=== PATIENT | female | born 1935 | race Caucasian/White ===

== ENCOUNTER → 2019-02-06 | Outpatient (CLI) | payer OTHER ==
[2019-02-06 15:33] LABS: Basophils # (auto) 0 uL; Basophils % (auto) 0.6 % (0.0-2.0); Eosinophils # (auto) 0.2 uL; Eosinophils % (auto) 2.2 % (0.0-7.0); Hematocrit 44.7 % (36.0-46.0); Hemoglobin 15.3 g/dL (12.2-16.2); Lymphocytes # (auto) 1.4 uL; Lymphocytes % (auto) 19.3 % (10.0-50.0); Mean Corpuscular Hemoglobin 31.5 pg (28.0-32.0); Mean Corpuscular Hgb Conc. 34.2 g/dL (32.0-36.0); Mean Corpuscular Volume 92.1 fL (80.0-100.0); Monocytes # (auto) 0.5 uL; Monocytes % (auto) 6.9 % (0.0-12.0); Neutrophils # (auto) 5.1 uL; Platelet Count (auto) 150 10^3/uL (140-450); Red Blood Cells 4.86 10^6/uL (4.0-5.20); Red Cell Distribution Width 13.6 % (11.8-14.3); White Blood Cell 7.2 10^3/uL (4.4-10.8)
[2019-02-06 16:21] LABS: Albumin 3.5 g/dL (3.4-5.0); BUN/Creatinine Ratio 15.6; Calcium 8.9 mg/dL (8.5-10.1)
[2019-02-06 16:26] LABS: Bilirubin, Total 0.3 mg/dL (0.2-1.0); Total Protein 7.3 g/dL (6.4-8.2)
== END | disposition home or self-care (01) ==
LOC: LAB 15:18
PROVIDERS: ATTEND Internal Medicine
DX: E78.5 Hyperlipidemia, unspecified (principal); I10 Essential (primary) hypertension
CPT/HCPCS: 36415; 80053; 80061; 82306; 82607; 84443; 85025; 85652

== ENCOUNTER 2019-05-16 16:54 | Inpatient (IN) | payer OTHER ==
[~2019-05-16] VITALS: Ht 157.5 cm; Wt 79.5 kg
--- NOTE | 2019-05-16 16:55 | NUR ---
Direct Admit Note ANNY JACOBSON admitted to Telemetry unit as a direct admit per MD order. Patient oriented to Princess Camarillo, primary RN, unit, room, bed, and unit policies regarding patient care and visiting hours. Patient awaiting tele monitor for continuous telemetry monitoring. Patient placed on bedside oxygen at 2l n/c. Patient weighed by bedscale and encouraged to call if they need something. All questions and concerns addressed, patient verbalized understanding. RENNY Shelton paged to notify, awaiting admit orders. This rn called admitting to register patient and be able to access on [employer]. No distress or sob noted.
[2019-05-16 17:00] VITALS: BP 112/92
[2019-05-16] MEDS ORDERED: MORPHINE SULF INJ 2 MG/ML SYRINGE 1ML IV PRN ×3 (17:30→22:00)
[2019-05-16] MEDS ORDERED: NITROGLYCERIN 0.4 MG SL TAB SL PRN ×2 (17:30→22:00)
[2019-05-16] MEDS ORDERED: ONDANSETRON HCL 4 MG/2 ML VIAL IV PRN (17:45)
[2019-05-16] MEDS ORDERED: ACETAMINOPHEN 500 MG TAB PO PRN (17:45)
[2019-05-16] MEDS ORDERED: hydrALAZINE HCL 20 MG/ML VL IV PRN (17:45)
[2019-05-16 18:48] LABS: Basophils # (auto) 0 uL; Basophils % (auto) 0.6 % (0.0-2.0); Eosinophils # (auto) 0.3 uL; Eosinophils % (auto) 4.1 % (0.0-7.0); Hematocrit 40.8 % (36.0-46.0); Hemoglobin 13.6 g/dL (12.2-16.2); Lymphocytes # (auto) 1.3 uL; Lymphocytes % (auto) 17.4 % (10.0-50.0); Mean Corpuscular Hemoglobin 31.3 pg (28.0-32.0); Mean Corpuscular Hgb Conc. 33.4 g/dL (32.0-36.0); Mean Corpuscular Volume 93.9 fL (80.0-100.0); Monocytes # (auto) 0.7 uL; Monocytes % (auto) 9.7 % (0.0-12.0); Neutrophils # (auto) 5.2 uL; Neutrophils % (auto) 68.2 % (37.0-80.0); Platelet Count (auto) 219 10^3/uL (140-450); Red Blood Cells 4.35 10^6/uL (4.0-5.20); Red Cell Distribution Width 14.3 % (11.8-14.3); White Blood Cell 7.7 10^3/uL (4.4-10.8)
--- NOTE | 2019-05-16 19:15 | NUR ---
Patient care endorsed endorsed care to Jena hernandez. EKG done as ordered per RENNY Shelton and placed in chart. Tele monitor received from [employer] and placed on patient. Tele number [id number] shows afiv hr 80. Patient on2l n/c and call light within reach. Fall precs in place per protocol.
--- NOTE | 2019-05-16 19:20 | NUR ---
assumed care, pt. awake, no c/o pain, no sob.
--- NOTE | 2019-05-16 19:20 | NUR ---
assumed care, pt. awake,no iv at this time, no c/o pain, no sob. Addendum: 05/16/19 at 2025 by Jena Vann RN note above not on this patient.
[2019-05-16 19:26] LABS: BUN/Creatinine Ratio 18.8; Calcium 8.2 mg/dL (8.5-10.1); Potassium 4.5 mmol/L (3.5-5.1)
[2019-05-16 19:29] LABS: INR 1.08 (0.9-1.15)
[2019-05-16] MEDS: METOPROLOL TARTRATE 25 MG TAB PO SCH (21:25)
[2019-05-16] MEDS: APIXABAN 5 MG TAB PO SCH (21:25)
--- NOTE | 2019-05-16 21:45 | NUR ---
PT. C/O CHEST PAIN, EKG DONE, V/S FOLLOWS- BP-144/60, P-70, O2 SAT- 95%.
--- NOTE | 2019-05-16 22:03 | NUR ---
PT. STILL C/O CP, NITRO. 0.4MG GIVEN SL ORDERED, BP- 151/82, P-70, R-18, TO KEEP MONITOR.
--- NOTE | 2019-05-16 22:08 | NUR ---
PT. VERBALIZES CHEST PAIN RELIEVED.
[2019-05-16] MEDS: SODIUM CHLOR 0.9% PF (SALINE LOCK) 10ML VIAL/SYR IV SCH (22:10)
[2019-05-16] MEDS: HYDROcodone-ACET 5/325MG TAB PO PRN (22:10)
[2019-05-16 22:18] VITALS: BP 149/55
[2019-05-16] MEDS ORDERED: LISI-275 PO (22:53)
[2019-05-16] MEDS ORDERED: TRAM50TA2 PO (22:53)
[2019-05-16] MEDS ORDERED: DICY10CA12 PO (22:53)
[2019-05-16] MEDS ORDERED: LEVO50TA7 PO (22:53)
[2019-05-16] MEDS ORDERED: ISOS30TA4 PO (22:53)
[2019-05-16] MEDS ORDERED: SERT-274 PO (22:53)
[2019-05-16] MEDS ORDERED: ATEN50TA PO (22:53)
[2019-05-16] MEDS ORDERED: APIX5TAB PO (22:53)
--- NOTE | 2019-05-17 | NUR ---
pt. resting with eyes closed, no c/o chest pain, no sob.
[2019-05-17 05:06] VITALS: BP 155/91
[2019-05-17] MEDS: SODIUM CHLOR 0.9% PF (SALINE LOCK) 10ML VIAL/SYR IV SCH ×3 (05:37→21:18)
[2019-05-17 09:00] VITALS: BP 179/115
[2019-05-17 10:00] LABS: Basophils # (auto) 0.1 uL; Basophils % (auto) 0.8 % (0.0-2.0); Eosinophils # (auto) 0.3 uL; Eosinophils % (auto) 3.3 % (0.0-7.0); Hematocrit 44.6 % (36.0-46.0); Hemoglobin 15.1 g/dL (12.2-16.2); Lymphocytes # (auto) 1.1 uL; Lymphocytes % (auto) 14.1 % (10.0-50.0); Mean Corpuscular Hemoglobin 31.5 pg (28.0-32.0); Mean Corpuscular Hgb Conc. 33.8 g/dL (32.0-36.0); Mean Corpuscular Volume 93.3 fL (80.0-100.0); Monocytes # (auto) 0.6 uL; Neutrophils # (auto) 5.9 uL; Neutrophils % (auto) 73.8 % (37.0-80.0); Platelet Count (auto) 205 10^3/uL (140-450); Red Blood Cells 4.78 10^6/uL (4.0-5.20); Red Cell Distribution Width 14.4 % (11.8-14.3)
[2019-05-17] MEDS: ASPirin-EC 81 mg tab PO SCH (10:00)
[2019-05-17] MEDS ORDERED: LEVOTHYROXINE SODIUM 50 MCG TAB PO ONE (10:15)
[2019-05-17 10:25] LABS: Albumin 3.6 g/dL (3.4-5.0); Anion Gap 3 (5-15); Blood Urea Nitrogen 15 mg/dL (7-18); Calcium 8.5 mg/dL (8.5-10.1); Carbon Dioxide 29 mmol/L (21-32); Chloride 107 mmol/L (98-107); Glucose 123 mg/dL (74-106); Potassium 4.6 mmol/L (3.5-5.1); Sodium 139 mmol/L (136-145)
[2019-05-17 10:32] LABS: Alanine Aminotransferase 29 U/L (13-56); Alkaline Phosphatase 87 U/L (45-117); Aspartate Aminotransferase 20 U/L (15-37); BUN/Creatinine Ratio 17.9; Bilirubin, Total 0.6 mg/dL (0.2-1.0); GFR African American 83 mL/min; GFR Non-African American 69 mL/min; Total Protein 7.2 g/dL (6.4-8.2)
[2019-05-17 10:35] LABS: INR 1.09 (0.9-1.15); Partial Thromboplastin Time 32.8 sec (23.64-32.05)
[2019-05-17] MEDS: APIXABAN 5 MG TAB PO SCH (10:45)
[2019-05-17] MEDS: METOPROLOL TARTRATE 25 MG TAB PO SCH ×2 (10:50→21:18)
[2019-05-17] MEDS: LISINOPRIL 10 MG TAB PO SCH (10:50)
--- NOTE | 2019-05-17 11:24 | NUR ---
Spoke to Hospitalist MD Garcia aware of patient's status. Patient requesting to have Zoloft resumed per home meds. New orders received to resume zoloft. Will cont care
--- NOTE | 2019-05-17 12:20 | NUR ---
Cardio at bedside Holland at bedside aware of patient's status including c/o CP. New orders received for Adenosine stress test, spoke to Zane in nuc med and notified. New orders received to stop Eliquis now and Lovenox BID ordered. Will cont care
[2019-05-17] MEDS ORDERED: ADENOSINE 67 MG in GIVE UN-DILUTED 0 ML IV STA (12:26)
[2019-05-17 13:00] VITALS: BP 147/78
[2019-05-17 17:00] VITALS: BP 150/74
--- NOTE | 2019-05-17 19:10 | NUR ---
ASSUMED CARE, PT. AWAKE, NO C/O PAIN, NOT IN DISTRESS.
--- NOTE | 2019-05-17 19:10 | NUR ---
Patient care endorsed endorsed care to Jena hernandez. Patient sitting up in bed in no acute distress or sob. Call light within reach.
[2019-05-17 21:16] VITALS: BP 146/51
[2019-05-17] MEDS: SERTRALINE HCL 50 MG TAB PO SCH (21:18)
[2019-05-17] MEDS: ENOXAPARIN SOD 80 MG/0.8ML SYRINGE SC SCH (21:19)
[2019-05-18 05:35] VITALS: BP 135/71
[2019-05-18] MEDS: SODIUM CHLOR 0.9% PF (SALINE LOCK) 10ML VIAL/SYR IV SCH ×3 (05:39→21:34)
[2019-05-18] MEDS: HYDROcodone-ACET 5/325MG TAB PO PRN ×2 (05:40→21:30)
[2019-05-18] MEDS: LEVOTHYROXINE SODIUM 50 MCG TAB PO SCH (06:02)
--- NOTE | 2019-05-18 07:25 | NUR ---
Opening Note Received report from shift mechanic RN. Patient is awake, alert and oriented x4. No signs or symptoms of distress noted at this time. Patient is on 4L NC, respirations even and unlabored. Patient denies pain at this time. Reviewed plan of care with patient, patient verbalized understanding. Bed in low and locked position, call light within reach. Will continue to monitor Q1 hour and PRN.
[2019-05-18 09:00] VITALS: BP 137/80
[2019-05-18] MEDS: LISINOPRIL 10 MG TAB PO SCH (09:34)
[2019-05-18] MEDS: SERTRALINE HCL 50 MG TAB PO SCH ×2 (09:34→21:30)
[2019-05-18] MEDS: METOPROLOL TARTRATE 25 MG TAB PO SCH ×2 (09:34→21:31)
[2019-05-18] MEDS: ASPirin-EC 81 mg tab PO SCH (09:35)
[2019-05-18] MEDS: ENOXAPARIN SOD 80 MG/0.8ML SYRINGE SC SCH ×2 (09:35→21:34)
--- NOTE | 2019-05-18 12:07 | NUR ---
at bedside Discussing plan of care with patient. No new orders received. Will continue to monitor Q1 hour and PRN.
[2019-05-18 13:00] VITALS: BP 129/66
--- NOTE | 2019-05-18 15:25 | NUR ---
Patient moved to room 274B, with all personal belongings.
--- NOTE | 2019-05-18 19:21 | NUR ---
Closing Note Report given to retail shift supervisor RN. No signs or symptoms of distress noted at this time.
--- NOTE | 2019-05-18 19:45 | NUR ---
Opening Shift Note Assumed care of patient, awake and alert oriented x4. No S/S of distress/SOB noted. Bed is in lowest locked position with bed rails up x2 and call light is within reach of the patient. Instructed on POC and to call for assist PRN.
[2019-05-18 22:00] VITALS: BP 119/88
[2019-05-19 05:00] VITALS: BP 135/75
[2019-05-19 05:12] LABS: Basophils # (auto) 0 uL; Basophils % (auto) 0.7 % (0.0-2.0); Eosinophils # (auto) 0.2 uL; Eosinophils % (auto) 2.7 % (0.0-7.0); Hematocrit 41.7 % (36.0-46.0); Hemoglobin 14.1 g/dL (12.2-16.2); Mean Corpuscular Hemoglobin 31.2 pg (28.0-32.0); Mean Corpuscular Hgb Conc. 33.8 g/dL (32.0-36.0); Mean Corpuscular Volume 92.2 fL (80.0-100.0); Monocytes # (auto) 0.8 uL; Monocytes % (auto) 12.3 % (0.0-12.0); Neutrophils # (auto) 4.2 uL; Neutrophils % (auto) 68.3 % (37.0-80.0); Nucleated Red Blood Cells % 0.2 %; Platelet Count (auto) 164 10^3/uL (140-450); Red Blood Cells 4.52 10^6/uL (4.0-5.20); Red Cell Distribution Width 14.1 % (11.8-14.3); White Blood Cell 6.1 10^3/uL (4.4-10.8)
[2019-05-19 05:26] LABS: INR 1.09 (0.9-1.15); Partial Thromboplastin Time 37.2 sec (23.64-32.05)
[2019-05-19 05:31] LABS: BUN/Creatinine Ratio 17.6; Calcium 8.8 mg/dL (8.5-10.1)
[2019-05-19] MEDS: LEVOTHYROXINE SODIUM 50 MCG TAB PO SCH (06:05)
[2019-05-19] MEDS: HYDROcodone-ACET 5/325MG TAB PO PRN ×2 (06:06→14:57)
[2019-05-19] MEDS: SODIUM CHLOR 0.9% PF (SALINE LOCK) 10ML VIAL/SYR IV SCH ×2 (06:06→14:21)
--- NOTE | 2019-05-19 07:45 | NUR ---
Opening Note Received report from associate professor of anthropology RN. Patient is awake, alert and oriented x4. No signs or symptoms of distress noted at this time. Patient is on 2L NC, respirations even and unlabored. Patient is NPO for scheduled heart cath today. Reviewed plan of care with patient, patient verbalized understanding. Bed in low and locked position, call light within reach. Will continue to monitor Q1 hour and PRN.
--- NOTE | 2019-05-19 08:26 | NUR ---
Patient taken down to laborer drying department
[2019-05-19] MEDS ORDERED: IOHEXOL 350 MG/ML 100ML IJ ONE ×3 (08:49→09:16)
[2019-05-19] MEDS ORDERED: ANGIOMAX 250 MG VIAL IV ONE (09:00)
[2019-05-19] MEDS ORDERED: SODIUM CHL 0.9% 0 ML ONE (09:01)
[2019-05-19] MEDS ORDERED: VERAPAMIL 2.5MG/ML INJ 2ML VIAL IV ONE (09:01)
[2019-05-19] MEDS ORDERED: HEPARIN SODIUM (PORCINE) 5000 UNITS/ML 1ML VIAL ONE (09:01)
[2019-05-19] MEDS ORDERED: fentaNYL CITRATE 100 MCG/2 ML VL ONE (09:01)
[2019-05-19] MEDS ORDERED: MIDAZOLAM HCL 1MG/1ML-2 ML VIAL ONE (09:01)
[2019-05-19] MEDS ORDERED: LIDOCAINE 2%HCL (LOCAL ANESTH.) INJ 20ML MDV ONE (09:03)
[2019-05-19 09:46] VITALS: BP 157/64
[2019-05-19] MEDS: ASPirin-EC 81 mg tab PO SCH (10:00)
[2019-05-19] MEDS: LISINOPRIL 10 MG TAB PO SCH (10:00)
[2019-05-19] MEDS: SERTRALINE HCL 50 MG TAB PO SCH (10:00)
[2019-05-19] MEDS: ENOXAPARIN SOD 80 MG/0.8ML SYRINGE SC SCH (10:00)
[2019-05-19] MEDS: METOPROLOL TARTRATE 25 MG TAB PO SCH (10:00)
--- NOTE | 2019-05-19 11:42 | NUR ---
Patient back from dental laboratory assistant Received report from Shannan HOGAN. Vitals signs assesses. Blood pressure 143/70, heart rate 75. Patient is on 2L NC, respirations even and unlabored. Patient has Vasc band to right wrist, no signs of bleeding at this time. Bed alarm of for safety. Bed in low and locked position, call light within reach. Will continue to monitor Q1 hour and PRN.
[2019-05-19 12:30] VITALS: BP 111/50
--- NOTE | 2019-05-19 13:45 | NUR ---
Vasc band removed No bleeding noted to right wrist. Patient tolerated well. Gauze and Tegaderm applied to site. Patient tolerated well. Will continue to monitor Q1 hour and PRN.
--- NOTE | 2019-05-19 13:50 | NUR ---
Patient provided lunch tray
[2019-05-19] MEDS ORDERED: CALC-30 OR (15:11)
[2019-05-19] MEDS ORDERED: OMEG1CAP59 PO (15:11)
[2019-05-19] MEDS ORDERED: CHOL20007 PO (15:11)
[2019-05-19] MEDS ORDERED: MULTCAP45 PO (15:11)
[2019-05-19] MEDS ORDERED: ASCO500T11 PO (15:11)
--- NOTE | 2019-05-19 15:15 | NUR ---
Dr. Garcia at bedside Discussing plan of care with patient. Patient to be discharged today. Will continue to monitor Q1 and PRN.
--- NOTE | 2019-05-19 16:41 | NUR ---
assessment Patient has no post discharge needs identified. Addendum: 05/19/19 at 1642 by Hattie CRAVEN Amended: Links added.
[2019-05-19 17:09] VITALS: BP 145/59
[2019-05-19 17:12] VITALS: BP 148/88
--- NOTE | 2019-05-19 18:40 | NUR ---
Discharge Discharge instructions given as ordered. Encourage to follow up with PMD as instructed. All questions and concerns addressed. Patient verbalized understanding. Medication reconciliation form completed and copy given to patient. IV catheter removed, catheter intact, pressure dressing applied. school bus monitor removed and sent back to ICU. Patient taken down to private vehicle via wheelchair, accompanied by family member, with all personal belongings. No signs or symptoms of distress noted at this time.
== END 2019-05-19 18:40 | disposition home or self-care (01) | DRG 287 ==
LOC: OBSVTOIN 16:54 → TELE-WESTW 16:54
PROVIDERS: ADMIT Nurse Practitioner Acute Care; ATTEND Internal Medicine Nephrology
PROC: 4A023N7 Measurement of Cardiac Sampling and Pressure, Left Heart, Percutaneous Approach (ICD-10-PCS; principal; 2019-05-19)
PROC: B2111ZZ Fluoroscopy of Multiple Coronary Arteries using Low Osmolar Contrast (ICD-10-PCS; 2019-05-19)
PROC: B2151ZZ Fluoroscopy of Left Heart using Low Osmolar Contrast (ICD-10-PCS; 2019-05-19)
DX: R07.89 Other chest pain (principal); D68.59 Other primary thrombophilia; I10 Essential (primary) hypertension; I25.10 Atherosclerotic heart disease of native coronary artery without angina pectoris; E03.9 Hypothyroidism, unspecified; F32.9 Major depressive disorder, single episode, unspecified; J44.9 Chronic obstructive pulmonary disease, unspecified; I48.91 Unspecified atrial fibrillation; E78.5 Hyperlipidemia, unspecified; I25.2 Old myocardial infarction; Z85.118 Personal history of other malignant neoplasm of bronchus and lung; Z95.1 Presence of aortocoronary bypass graft; Z79.01 Long term (current) use of anticoagulants
CPT/HCPCS: 36415; 36600; 71045; 78452; 80048; 80053; 82805; 84484; 85025; 85610; 85730; 86141; 86850; 86900; 86901; 93005; 93017; 93306; 96374; G0378; J0153; J2250

== ENCOUNTER → 2019-07-13 | Outpatient (CLI) | payer OTHER ==
[~2019-07-13] MED LIST: APIX5TAB PO; ATEN50TA PO; CALC-30 OR; ISOS30TA4 PO; LEVO50TA7 PO; LISI-275 PO; MULTCAP45 PO; OMEG1CAP59 PO; SERT-274 PO; TRAM50TA2 PO
[2019-07-13 10:34] LABS: Basophils # (auto) 0 uL; Basophils % (auto) 0.7 % (0.0-2.0); Eosinophils # (auto) 0.1 uL; Eosinophils % (auto) 1.6 % (0.0-7.0); Hematocrit 41.1 % (36.0-46.0); Hemoglobin 14.1 g/dL (12.2-16.2); Lymphocytes % (auto) 14.9 % (10.0-50.0); Mean Corpuscular Hemoglobin 30.7 pg (28.0-32.0); Mean Corpuscular Hgb Conc. 34.3 g/dL (32.0-36.0); Mean Corpuscular Volume 89.5 fL (80.0-100.0); Monocytes # (auto) 0.6 uL; Monocytes % (auto) 8.6 % (0.0-12.0); Neutrophils # (auto) 4.9 uL; Neutrophils % (auto) 74.2 % (37.0-80.0); Platelet Count (auto) 175 10^3/uL (140-450); Red Blood Cells 4.59 10^6/uL (4.0-5.20); Red Cell Distribution Width 13.9 % (11.8-14.3); White Blood Cell 6.6 10^3/uL (4.4-10.8)
[2019-07-13 10:56] LABS: Albumin 3.6 g/dL (3.4-5.0)
[2019-07-13 11:10] LABS: BUN/Creatinine Ratio 26.4; Bilirubin, Total 0.5 mg/dL (0.2-1.0)
[2019-07-13 12:14] LABS: Folate (Folic Acid) > 24.00 ng/mL (5.38-24)
== END | disposition home or self-care (01) ==
LOC: LAB 10:13
PROVIDERS: ATTEND Internal Medicine
DX: I10 Essential (primary) hypertension (principal)
CPT/HCPCS: 36415; 80053; 80061; 82306; 82607; 82746; 84443; 85025

== ENCOUNTER → 2019-09-08 | Outpatient (CLI) | payer OTHER ==
[2019-09-08 14:16] LABS: Basophils # (auto) 0.1 10 ^3/uL (0-0.2); Basophils % (auto) 0.8 % (0.0-2.0); Eosinophils # (auto) 0.2 10 ^3/uL (0-0.8); Eosinophils % (auto) 2.9 % (0.0-7.0); Hematocrit 39.7 % (36.0-46.0); Hemoglobin 13.2 g/dL (12.2-16.2); Lymphocytes # (auto) 1.1 10 ^3/uL (0.4-5.4); Mean Corpuscular Hemoglobin 30.1 pg (28.0-32.0); Mean Corpuscular Hgb Conc. 33.2 g/dL (32.0-36.0); Mean Corpuscular Volume 90.9 fL (80.0-100.0); Monocytes # (auto) 0.7 10 ^3/uL (0-1.3); Monocytes % (auto) 9.5 % (0.0-12.0); Neutrophils # (auto) 5.1 10 ^3/uL (1.6-8.6); Neutrophils % (auto) 71.8 % (37.0-80.0); Platelet Count (auto) 205 10^3/uL (140-450); Red Blood Cells 4.37 10^6/uL (4.0-5.20); Red Cell Distribution Width 14.7 % (11.8-14.3); White Blood Cell 7.1 10^3/uL (4.4-10.8)
[2019-09-08 14:35] LABS: Albumin 3.1 g/dL (3.4-5.0); Calcium 8.9 mg/dL (8.5-10.1); Potassium 4.4 mmol/L (3.5-5.1)
[2019-09-08 14:39] LABS: BUN/Creatinine Ratio 15.3; Bilirubin, Total 0.3 mg/dL (0.2-1.0); Total Protein 7.1 g/dL (6.4-8.2)
== END | disposition home or self-care (01) ==
LOC: LAB 13:57
PROVIDERS: ATTEND Internal Medicine
DX: C78.00 Secondary malignant neoplasm of unspecified lung (principal); E04.1 Nontoxic single thyroid nodule
CPT/HCPCS: 36415; 80053; 85025

== ENCOUNTER 2019-12-05 21:30 | Emergency (ER) | payer OTHER ==
[~2019-12-05] VITALS: Ht 167.6 cm; Wt 78.9 kg
[2019-12-05 23:05] LABS: Basophils # (auto) 0 10 ^3/uL (0-0.2); Basophils % (auto) 0.4 % (0.0-2.0); Eosinophils # (auto) 0 10 ^3/uL (0-0.8); Eosinophils % (auto) 0.1 % (0.0-7.0); Hematocrit 42.5 % (36.0-46.0); Hemoglobin 14.2 g/dL (12.2-16.2); Lymphocytes # (auto) 0.6 10 ^3/uL (0.4-5.4); Lymphocytes % (auto) 7.1 % (10.0-50.0); Mean Corpuscular Hemoglobin 30.7 pg (28.0-32.0); Mean Corpuscular Hgb Conc. 33.5 g/dL (32.0-36.0); Mean Corpuscular Volume 91.6 fL (80.0-100.0); Monocytes # (auto) 0.3 10 ^3/uL (0-1.3); Monocytes % (auto) 3.6 % (0.0-12.0); Neutrophils % (auto) 88.8 % (37.0-80.0); Platelet Count (auto) 220 10^3/uL (140-450); Red Blood Cells 4.64 10^6/uL (4.0-5.20); Red Cell Distribution Width 14.8 % (11.8-14.3)
[2019-12-05 23:19] LABS: INR 1.11 (0.9-1.15); Partial Thromboplastin Time 32.9 sec (23.64-32.05)
[2019-12-05 23:23] LABS: Albumin 3.9 g/dL (3.4-5.0); Potassium 4.1 mmol/L (3.5-5.1)
[2019-12-05 23:25] LABS: BUN/Creatinine Ratio 19.3; Magnesium 2.2 mg/dL (1.6-2.6)
[2019-12-05 23:36] LABS: Bilirubin, Total 0.6 mg/dL (0.2-1.0)
[2019-12-06] MEDS ORDERED: LIDOCAINE VISCOUS 2% 15ML UD PO ONE (01:30)
[2019-12-06] MEDS ORDERED: SODIUM CHLORIDE 0.9% 500 ML IV ONE (01:30)
[2019-12-06] MEDS ORDERED: PANTOPRAZOLE 40 MG/10 ML VIAL INJ IV ONE (01:30)
[2019-12-06] MEDS ORDERED: ALUM & MAG HYDROX-SIMETH LIQ(MAALOX) 30 ML PO ONE (01:30)
[2019-12-06 03:06] VITALS: BP 122/76
== END 2019-12-06 03:10 | disposition home or self-care (01) ==
LOC: EDBD 21:30 → ER 21:34
DX: K29.70 Gastritis, unspecified, without bleeding (principal); J44.9 Chronic obstructive pulmonary disease, unspecified; I10 Essential (primary) hypertension; Z88.8 Allergy status to other drugs, medicaments and biological substances; Z79.899 Other long term (current) drug therapy; Z98.61 Coronary angioplasty status
CPT/HCPCS: 36415; 71045; 74176; 80053; 82150; 83690; 83735; 85025; 85610; 85730; 93005; 96374; 99285; C9113; J7030; J7040

== ENCOUNTER → 2020-02-14 | Outpatient (CLI) | payer OTHER ==
[~2020-02-14] MED LIST changes: +ALBUTEROL SULF 2.5 MG/0.5ML(0.5%) NEB SOLN ONE
== END | disposition home or self-care (01) ==
LOC: RT 08:30
PROVIDERS: ATTEND Internal Medicine Pulmonary Disease
DX: J44.9 Chronic obstructive pulmonary disease, unspecified (principal)
CPT/HCPCS: 94060; 94727; 94729

== ENCOUNTER → 2020-08-06 | Outpatient (CLI) | payer OTHER ==
[~2020-08-06] VITALS: Ht 170.2 cm; Wt 79.4 kg
[~2020-08-06] MED LIST changes: +ADENOSINE 67 MG in GIVE UN-DILUTED 0 ML IV STA; -ALBUTEROL SULF 2.5 MG/0.5ML(0.5%) NEB SOLN ONE
[2020-08-06 09:40] VITALS: BP 172/88
== END | disposition home or self-care (01) ==
LOC: XY 08:07
PROVIDERS: ATTEND Internal Medicine
DX: R07.9 Chest pain, unspecified (principal)
CPT/HCPCS: 78452; 93017; A9500; J0153

== ENCOUNTER → 2020-08-08 | Outpatient (CLI) | payer OTHER ==
[~2020-08-08] MED LIST changes: -ADENOSINE 67 MG in GIVE UN-DILUTED 0 ML IV STA
[2020-08-08 16:38] LABS: Basophils # (auto) 0.1 10 ^3/uL (0-0.2); Basophils % (auto) 0.9 % (0.0-2.0); Eosinophils # (auto) 0.1 10 ^3/uL (0-0.8); Eosinophils % (auto) 2.2 % (0.0-7.0); Hematocrit 42.1 % (36.0-46.0); Hemoglobin 14.1 g/dL (12.2-16.2); Lymphocytes # (auto) 1.2 10 ^3/uL (0.4-5.4); Lymphocytes % (auto) 18.5 % (10.0-50.0); Mean Corpuscular Hgb Conc. 33.6 g/dL (32.0-36.0); Mean Corpuscular Volume 92.3 fL (80.0-100.0); Monocytes # (auto) 0.6 10 ^3/uL (0-1.3); Neutrophils # (auto) 4.6 10 ^3/uL (1.6-8.6); Neutrophils % (auto) 69.4 % (37.0-80.0); Platelet Count (auto) 191 10^3/uL (140-450); Red Blood Cells 4.57 10^6/uL (4.0-5.20); Red Cell Distribution Width 14.4 % (11.8-14.3); White Blood Cell 6.6 10^3/uL (4.4-10.8)
[2020-08-08 17:08] LABS: Albumin 3.4 g/dL (3.4-5.0); Calcium 8.9 mg/dL (8.5-10.1); Potassium 4.4 mmol/L (3.5-5.1)
[2020-08-08 17:12] LABS: BUN/Creatinine Ratio 25.6; Bilirubin, Total 0.4 mg/dL (0.2-1.0); Total Protein 7.6 g/dL (6.4-8.2)
== END | disposition home or self-care (01) ==
LOC: LAB 16:21
PROVIDERS: ATTEND Internal Medicine
DX: E55.9 Vitamin D deficiency, unspecified (principal); N39.0 Urinary tract infection, site not specified; E03.9 Hypothyroidism, unspecified
CPT/HCPCS: 36415; 80053; 80061; 84443; 85025; 87086

== ENCOUNTER → 2020-10-03 | Outpatient (CLI) | payer OTHER | END | disposition home or self-care (01) | LOC: XYW 10:41 | PROVIDERS: ATTEND Internal Medicine | DX: I07.1 Rheumatic tricuspid insufficiency (principal); I48.91 Unspecified atrial fibrillation; R07.9 Chest pain, unspecified | CPT/HCPCS: 93306 ==

== ENCOUNTER → 2020-11-05 | Outpatient (CLI) | payer OTHER ==
[~2020-11-05] MED LIST changes: +ISOS1TAB28 PO; -ISOS30TA4 PO; -SERT-274 PO; +SERT50TA19 PO
[2020-11-05 12:14] LABS: Basophils # (auto) 0 10 ^3/uL (0-0.2); Basophils % (auto) 0.8 % (0.0-2.0); Eosinophils # (auto) 0.1 10 ^3/uL (0-0.8); Eosinophils % (auto) 2.2 % (0.0-7.0); Hematocrit 40.2 % (36.0-46.0); Hemoglobin 14.1 g/dL (12.2-16.2); Lymphocytes % (auto) 16.6 % (10.0-50.0); Mean Corpuscular Hemoglobin 32.3 pg (28.0-32.0); Mean Corpuscular Volume 92.3 fL (80.0-100.0); Monocytes # (auto) 0.6 10 ^3/uL (0-1.3); Monocytes % (auto) 9.6 % (0.0-12.0); Neutrophils # (auto) 4.1 10 ^3/uL (1.6-8.6); Neutrophils % (auto) 70.8 % (37.0-80.0); Platelet Count (auto) 189 10^3/uL (140-450); Red Blood Cells 4.35 10^6/uL (4.0-5.20); Red Cell Distribution Width 14.8 % (11.8-14.3); White Blood Cell 5.8 10^3/uL (4.4-10.8)
[2020-11-05 12:40] LABS: Albumin 3.3 g/dL (3.4-5.0); Calcium 8.8 mg/dL (8.5-10.1); Potassium 4.5 mmol/L (3.5-5.1)
[2020-11-05 12:44] LABS: BUN/Creatinine Ratio 15.6; Bilirubin, Total 0.3 mg/dL (0.2-1.0); Total Protein 7.5 g/dL (6.4-8.2)
[2020-11-05 12:52] LABS: Thyroid Stimulating Hormone 1.94 uIU/mL (0.358-3.74)
== END | disposition home or self-care (01) ==
LOC: LAB 11:44
PROVIDERS: ATTEND Internal Medicine
DX: Z00.00 Encounter for general adult medical examination without abnormal findings (principal); C34.90 Malignant neoplasm of unspecified part of unspecified bronchus or lung
CPT/HCPCS: 36415; 80053; 83615; 84436; 84443; 85025

== ENCOUNTER → 2021-01-14 | Outpatient (CLI) | payer OTHER ==
[2021-01-14 17:06] LABS: Basophils # (auto) 0.1 10 ^3/uL (0-0.2); Eosinophils # (auto) 0.1 10 ^3/uL (0-0.8); Eosinophils % (auto) 2.3 % (0.0-7.0); Hematocrit 40.7 % (36.0-46.0); Hemoglobin 14.2 g/dL (12.2-16.2); Lymphocytes # (auto) 1.2 10 ^3/uL (0.4-5.4); Lymphocytes % (auto) 20.5 % (10.0-50.0); Mean Corpuscular Hemoglobin 32.6 pg (28.0-32.0); Mean Corpuscular Hgb Conc. 34.8 g/dL (32.0-36.0); Mean Corpuscular Volume 93.8 fL (80.0-100.0); Monocytes # (auto) 0.5 10 ^3/uL (0-1.3); Monocytes % (auto) 7.8 % (0.0-12.0); Neutrophils % (auto) 68.4 % (37.0-80.0); Nucleated Red Blood Cells % 0.1 %; Red Blood Cells 4.34 10^6/uL (4.0-5.20); White Blood Cell 5.9 10^3/uL (4.4-10.8)
[2021-01-14 17:36] LABS: INR 1.1 (0.9-1.15); Partial Thromboplastin Time 32.2 sec (23.0-31.2)
== END | disposition home or self-care (01) ==
LOC: LAB 16:44
PROVIDERS: ATTEND Internal Medicine
DX: Z00.00 Encounter for general adult medical examination without abnormal findings (principal); C34.90 Malignant neoplasm of unspecified part of unspecified bronchus or lung
CPT/HCPCS: 36415; 85025; 85610; 85730

== ENCOUNTER → 2021-01-17 | Outpatient (CLI) | payer OTHER ==
[~2021-01-17] MED LIST changes: +LIDOCAINE 2%HCL (LOCAL ANESTH.) INJ 20ML MDV ONE; +MIDAZOLAM HCL 2MG/2ML 2ml VIAL (1mg/ml) IV ONE; +MIDAZOLAM HCL 2MG/2ML 2ml VIAL (1mg/ml) ONE; +fentaNYL CITRATE 100 MCG/2 ML VL IV ONE; +fentaNYL CITRATE 100 MCG/2 ML VL ONE
== END | disposition home or self-care (01) ==
LOC: XYW 01-15 10:20
PROVIDERS: ATTEND Internal Medicine
DX: C34.90 Malignant neoplasm of unspecified part of unspecified bronchus or lung (principal); J43.2 Centrilobular emphysema; R91.8 Other nonspecific abnormal finding of lung field; I25.10 Atherosclerotic heart disease of native coronary artery without angina pectoris; I51.7 Cardiomegaly; I70.0 Atherosclerosis of aorta; R59.0 Localized enlarged lymph nodes
CPT/HCPCS: 71250; J2250

== ENCOUNTER → 2021-08-12 | Outpatient (CLI) | payer OTHER ==
[~2021-08-12] MED LIST changes: -LIDOCAINE 2%HCL (LOCAL ANESTH.) INJ 20ML MDV ONE; -MIDAZOLAM HCL 2MG/2ML 2ml VIAL (1mg/ml) IV ONE; -MIDAZOLAM HCL 2MG/2ML 2ml VIAL (1mg/ml) ONE; -fentaNYL CITRATE 100 MCG/2 ML VL IV ONE; -fentaNYL CITRATE 100 MCG/2 ML VL ONE
[2021-08-12 11:31] LABS: INR 1.06 (0.9-1.15); Partial Thromboplastin Time 30.9 sec (23.6-33.0)
[2021-08-12 14:11] LABS: Basophils # (auto) 0.1 10 ^3/uL (0-0.2); Basophils % (auto) 1.2 % (0.0-2.0); Eosinophils # (auto) 0.2 10 ^3/uL (0-0.8); Eosinophils % (auto) 2.2 % (0.0-7.0); Hematocrit 40.8 % (36.0-46.0); Hemoglobin 13.8 g/dL (12.2-16.2); Lymphocytes % (auto) 13.9 % (10.0-50.0); Mean Corpuscular Hemoglobin 32.2 pg (28.0-32.0); Mean Corpuscular Hgb Conc. 33.9 g/dL (32.0-36.0); Mean Corpuscular Volume 95.1 fL (80.0-100.0); Monocytes # (auto) 0.6 10 ^3/uL (0-1.3); Monocytes % (auto) 8.9 % (0.0-12.0); Neutrophils # (auto) 5.4 10 ^3/uL (1.6-8.6); Neutrophils % (auto) 73.8 % (37.0-80.0); Nucleated Red Blood Cells % 0.1 %; Red Blood Cells 4.29 10^6/uL (4.0-5.20); White Blood Cell 7.3 10^3/uL (4.4-10.8)
== END | disposition home or self-care (01) ==
LOC: LAB 09:52
PROVIDERS: ATTEND Internal Medicine Pulmonary Disease
DX: C34.90 Malignant neoplasm of unspecified part of unspecified bronchus or lung (principal); J44.9 Chronic obstructive pulmonary disease, unspecified
CPT/HCPCS: 36415; 85025; 85610; 85730

== ENCOUNTER → 2021-08-21 | Outpatient (CLI) | payer OTHER | END | disposition home or self-care (01) | LOC: XY 09:09 | PROVIDERS: ATTEND Internal Medicine | DX: I65.29 Occlusion and stenosis of unspecified carotid artery (principal); I10 Essential (primary) hypertension; R42 Dizziness and giddiness | CPT/HCPCS: 93886 ==

== ENCOUNTER → 2021-09-10 | Outpatient (CLI) | payer OTHER ==
[2021-09-10 09:16] LABS: Basophils # (auto) 0.1 10 ^3/uL (0-0.2); Basophils % (auto) 1.1 % (0.0-2.0); Eosinophils # (auto) 0.2 10 ^3/uL (0-0.8); Eosinophils % (auto) 2.6 % (0.0-7.0); Hematocrit 40.6 % (36.0-46.0); Hemoglobin 14.4 g/dL (12.2-16.2); Lymphocytes # (auto) 1.1 10 ^3/uL (0.4-5.4); Lymphocytes % (auto) 18.5 % (10.0-50.0); Mean Corpuscular Hemoglobin 32.8 pg (28.0-32.0); Mean Corpuscular Hgb Conc. 35.3 g/dL (32.0-36.0); Monocytes # (auto) 0.4 10 ^3/uL (0-1.3); Monocytes % (auto) 7.3 % (0.0-12.0); Neutrophils # (auto) 4.3 10 ^3/uL (1.6-8.6); Neutrophils % (auto) 70.5 % (37.0-80.0); Nucleated Red Blood Cells % 0.1 %; Red Blood Cells 4.37 10^6/uL (4.0-5.20); Red Cell Distribution Width 13.9 % (11.8-14.3); White Blood Cell 6.1 10^3/uL (4.4-10.8)
[2021-09-10 09:54] LABS: Albumin 3.4 g/dL (3.4-5.0); Calcium 9.3 mg/dL (8.5-10.1)
[2021-09-10 10:01] LABS: BUN/Creatinine Ratio 19.6; Bilirubin, Total 0.3 mg/dL (0.2-1.0); Total Protein 7.2 g/dL (6.4-8.2)
== END | disposition home or self-care (01) ==
LOC: LAB 08:53
PROVIDERS: ATTEND Internal Medicine
DX: E78.5 Hyperlipidemia, unspecified (principal); I10 Essential (primary) hypertension
CPT/HCPCS: 36415; 80053; 80061; 83036; 84443; 85025

== ENCOUNTER 2021-11-24 13:02 | Emergency (ER) | payer OTHER ==
[~2021-11-24] VITALS: Ht 157.5 cm; Wt 77.1 kg
[2021-11-24 13:16] VITALS: BP 140/75
[2021-11-24] MEDS ORDERED: ONDANSETRON HCL 4 MG/2 ML VIAL IV ONE (14:00)
[2021-11-24] MEDS ORDERED: MORPHINE SULFATE 4 MG/ML SYR/VIAL IV ONE (14:00)
[2021-11-24 15:19] LABS: Basophils # (auto) 0.1 10 ^3/uL (0-0.2); Basophils % (auto) 1.2 % (0.0-2.0); Eosinophils # (auto) 0.1 10 ^3/uL (0-0.8); Eosinophils % (auto) 0.9 % (0.0-7.0); Hematocrit 39.1 % (36.0-46.0); Hemoglobin 13.4 g/dL (12.2-16.2); Lymphocytes # (auto) 0.8 10 ^3/uL (0.4-5.4); Lymphocytes % (auto) 11.1 % (10.0-50.0); Mean Corpuscular Hemoglobin 32.3 pg (28.0-32.0); Mean Corpuscular Hgb Conc. 34.4 g/dL (32.0-36.0); Monocytes # (auto) 0.5 10 ^3/uL (0-1.3); Monocytes % (auto) 6.6 % (0.0-12.0); Neutrophils # (auto) 6.1 10 ^3/uL (1.6-8.6); Neutrophils % (auto) 80.2 % (37.0-80.0); Nucleated Red Blood Cells % 0.1 %; Red Blood Cells 4.15 10^6/uL (4.0-5.20); Red Cell Distribution Width 13.8 % (11.8-14.3); White Blood Cell 7.6 10^3/uL (4.4-10.8)
[2021-11-24 15:23] LABS: Albumin 3.5 g/dL (3.4-5.0); Potassium 4.3 mmol/L (3.5-5.1)
[2021-11-24 15:27] LABS: Bilirubin, Total 0.3 mg/dL (0.2-1.0); Total Protein 7.5 g/dL (6.4-8.2)
[2021-11-24] MEDS ORDERED: ASPirin 81 mg TAB PO ONE (16:15)
== END 2021-11-24 19:03 | disposition left against medical advice (07) ==
LOC: ER 13:02
DX: R07.89 Other chest pain (principal); I24.9 Acute ischemic heart disease, unspecified; J44.9 Chronic obstructive pulmonary disease, unspecified; I10 Essential (primary) hypertension; I25.2 Old myocardial infarction; I48.91 Unspecified atrial fibrillation; Z90.49 Acquired absence of other specified parts of digestive tract; Z90.89 Acquired absence of other organs; Z90.710 Acquired absence of both cervix and uterus; Z98.61 Coronary angioplasty status; Z53.29 Procedure and treatment not carried out because of patient's decision for other reasons; Z91.041 Radiographic dye allergy status
CPT/HCPCS: 36415; 71046; 80053; 83735; 83880; 84484; 85025; 93005

== ENCOUNTER 2022-01-08 12:55 | Inpatient (IN) | payer OTHER ==
[~2022-01-08] VITALS: Ht 157.5 cm; Wt 80.1 kg
[2022-01-08] MEDS ORDERED: IPRATROPIUM BROM 0.5 MG/2.5ML INH SOL NEB ONE (13:30)
[2022-01-08] MEDS ORDERED: DexAMETHasone SOD PHOS 10MG/1ML VIAL INJ IV ONE (13:30)
[2022-01-08] MEDS ORDERED: ALBUTEROL SULF 2.5 MG/0.5ML(0.5%) NEB SOLN NEB ONE (13:30)
[2022-01-08 13:46] LABS: Basophils # (auto) 0 10 ^3/uL (0-0.2); Basophils % (auto) 0.5 % (0.0-2.0); Eosinophils # (auto) 0 10 ^3/uL (0-0.8); Eosinophils % (auto) 0.2 % (0.0-7.0); Hematocrit 37.8 % (36.0-46.0); Hemoglobin 12.4 g/dL (12.2-16.2); Lymphocytes # (auto) 0.4 10 ^3/uL (0.4-5.4); Lymphocytes % (auto) 6.7 % (10.0-50.0); Mean Corpuscular Hemoglobin 30.4 pg (28.0-32.0); Mean Corpuscular Hgb Conc. 32.9 g/dL (32.0-36.0); Mean Corpuscular Volume 92.5 fL (80.0-100.0); Monocytes # (auto) 0.2 10 ^3/uL (0-1.3); Monocytes % (auto) 3.9 % (0.0-12.0); Neutrophils # (auto) 5.2 10 ^3/uL (1.6-8.6); Neutrophils % (auto) 88.7 % (37.0-80.0); Red Blood Cells 4.09 10^6/uL (4.0-5.20); Red Cell Distribution Width 13.5 % (11.8-14.3); White Blood Cell 5.9 10^3/uL (4.4-10.8)
[2022-01-08 14:05] LABS: Albumin 3.3 g/dL (3.4-5.0); Calcium 9.5 mg/dL (8.5-10.1); Magnesium 2.1 mg/dL (1.6-2.6); Potassium 5.3 mmol/L (3.5-5.1)
[2022-01-08] MEDS: MAGNESIUM SULFATE 1GM/100ML 100 ML IV SCH ×2 (14:07→14:58)
[2022-01-08 14:10] LABS: BUN/Creatinine Ratio 24.3; Bilirubin, Total 0.4 mg/dL (0.2-1.0); Total Protein 7.8 g/dL (6.4-8.2)
[2022-01-08] MEDS ORDERED: NITROGLYCERIN 0.4 MG SL TAB SL PRN (18:15)
[2022-01-08] MEDS ORDERED: IPRATROPIUM BROM 0.5 MG/2.5ML INH SOL NEB PRN (18:15)
[2022-01-08] MEDS ORDERED: MORPHINE SULFATE INJ 2 MG/ml SYRG IV PRN (18:15)
[2022-01-08] MEDS ORDERED: ALBUTEROL SULF 2.5 MG/0.5ML(0.5%) NEB SOLN NEB PRN (18:15)
[2022-01-08 19:05] VITALS: BP 122/60
[2022-01-08 19:15] LABS: Cholesterol 137 mg/dL (< 200); Triglycerides 68 mg/dL (< 150)
[2022-01-08 19:18] LABS: HDL Cholesterol 41 mg/dL (40-59); LDL Cholesterol 96 mg/dL (< 100)
[2022-01-08] MEDS: methylPREDNISolone SOD SUCC 125 MG/2 ML VL IV SCH (21:30)
[2022-01-08] MEDS: APIXABAN 5 MG TAB PO SCH (21:30)
[2022-01-08] MEDS: ATENOLOL 50 MG TAB PO SCH (21:30)
[2022-01-08 22:00] VITALS: BP 136/66
[2022-01-08 22:35] LABS: Urine Bacteria FEW /hpf (None Seen); Urine Blood Negative /uL (Negative); Urine Hyaline Cast FEW /lpf (0 - 2); Urine Specific Gravity 1.017 (1.001-1.035); Urine WBC 14 /hpf (0 - 5)
[2022-01-09 05:00] VITALS: BP 114/60
[2022-01-09] MEDS: ALBUTEROL SULF 2.5 MG/0.5ML(0.5%) NEB SOLN NEB SCH ×3 (05:55→18:46)
[2022-01-09] MEDS: IPRATROPIUM BROM 0.5 MG/2.5ML INH SOL NEB SCH ×3 (05:55→18:46)
[2022-01-09 07:51] LABS: Basophils # (auto) 0.1 10 ^3/uL (0-0.2); Basophils % (auto) 0.6 % (0.0-2.0); Eosinophils # (auto) 0 10 ^3/uL (0-0.8); Eosinophils % (auto) 0.1 % (0.0-7.0); Hematocrit 38.2 % (36.0-46.0); Hemoglobin 12.7 g/dL (12.2-16.2); Lymphocytes # (auto) 0.5 10 ^3/uL (0.4-5.4); Lymphocytes % (auto) 4.7 % (10.0-50.0); Mean Corpuscular Hemoglobin 30.7 pg (28.0-32.0); Mean Corpuscular Hgb Conc. 33.2 g/dL (32.0-36.0); Mean Corpuscular Volume 92.6 fL (80.0-100.0); Monocytes # (auto) 0.3 10 ^3/uL (0-1.3); Monocytes % (auto) 2.5 % (0.0-12.0); Neutrophils # (auto) 9.5 10 ^3/uL (1.6-8.6); Neutrophils % (auto) 92.1 % (37.0-80.0); Red Blood Cells 4.12 10^6/uL (4.0-5.20); Red Cell Distribution Width 13.9 % (11.8-14.3); White Blood Cell 10.3 10^3/uL (4.4-10.8)
[2022-01-09 08:04] LABS: Albumin 3.2 g/dL (3.4-5.0); Calcium 9.1 mg/dL (8.5-10.1); Potassium 5.3 mmol/L (3.5-5.1)
[2022-01-09 08:07] LABS: BUN/Creatinine Ratio 27.4; Bilirubin, Total 0.3 mg/dL (0.2-1.0); Total Protein 7.6 g/dL (6.4-8.2)
[2022-01-09 09:24] VITALS: BP 107/50
[2022-01-09] MEDS: ATENOLOL 50 MG TAB PO SCH ×2 (09:27→21:44)
[2022-01-09] MEDS: APIXABAN 5 MG TAB PO SCH ×2 (09:49→21:43)
[2022-01-09] MEDS: AZITHROMYCIN 500MG/ 250ML 250 ML IV SCH (09:49)
[2022-01-09] MEDS: methylPREDNISolone SOD SUCC 125 MG/2 ML VL IV SCH ×2 (09:49→21:43)
[2022-01-09] MEDS ORDERED: OSELTAMIVIR 75 MG CAP PO ONE (10:00)
[2022-01-09] MEDS ORDERED: cefTRIAXone 1GM/50ML D5W 50 ML IV ONE (11:30)
[2022-01-09 13:04] VITALS: BP 131/62
[2022-01-09] MEDS ORDERED: ACETAMINOPHEN 500 MG TAB PO PRN (15:45)
[2022-01-09] MEDS ORDERED: THROAT LOZENGES(CEPASTAT) MT PRN (15:45)
[2022-01-09 16:39] VITALS: BP 129/71
[2022-01-09] MEDS: OSELTAMIVIR 30 MG CAP PO SCH (21:48)
[2022-01-09 22:00] VITALS: BP 147/78
[2022-01-10 05:00] VITALS: BP 115/69
[2022-01-10] MEDS: ALBUTEROL SULF 2.5 MG/0.5ML(0.5%) NEB SOLN NEB SCH ×3 (06:14→18:52)
[2022-01-10] MEDS: IPRATROPIUM BROM 0.5 MG/2.5ML INH SOL NEB SCH ×3 (06:15→18:52)
[2022-01-10 07:59] LABS: Basophils # (auto) 0 10 ^3/uL (0-0.2); Basophils % (auto) 0.1 % (0.0-2.0); Eosinophils # (auto) 0 10 ^3/uL (0-0.8); Hematocrit 38.1 % (36.0-46.0); Hemoglobin 12.6 g/dL (12.2-16.2); Lymphocytes # (auto) 0.4 10 ^3/uL (0.4-5.4); Lymphocytes % (auto) 3.9 % (10.0-50.0); Mean Corpuscular Hemoglobin 30.5 pg (28.0-32.0); Mean Corpuscular Volume 92.4 fL (80.0-100.0); Monocytes # (auto) 0.4 10 ^3/uL (0-1.3); Monocytes % (auto) 4.5 % (0.0-12.0); Neutrophils # (auto) 8.5 10 ^3/uL (1.6-8.6); Neutrophils % (auto) 91.5 % (37.0-80.0); Nucleated Red Blood Cells % 0.1 %; Red Blood Cells 4.12 10^6/uL (4.0-5.20); Red Cell Distribution Width 13.7 % (11.8-14.3); White Blood Cell 9.3 10^3/uL (4.4-10.8)
[2022-01-10 08:00] VITALS: BP 137/71
[2022-01-10 08:07] LABS: Calcium 8.9 mg/dL (8.5-10.1); Potassium 4.9 mmol/L (3.5-5.1)
[2022-01-10 08:10] LABS: BUN/Creatinine Ratio 38.6
[2022-01-10] MEDS: cefTRIAXone 1GM/50ML D5W 50 ML IV SCH (08:58)
[2022-01-10] MEDS: APIXABAN 5 MG TAB PO SCH ×2 (08:59→21:55)
[2022-01-10] MEDS: OSELTAMIVIR 30 MG CAP PO SCH ×2 (08:59→21:55)
[2022-01-10] MEDS: methylPREDNISolone SOD SUCC 125 MG/2 ML VL IV SCH ×2 (08:59→21:55)
[2022-01-10 09:00] VITALS: BP 137/71
[2022-01-10] MEDS: ATENOLOL 50 MG TAB PO SCH ×2 (09:05→22:20)
[2022-01-10] MEDS: AZITHROMYCIN 500MG/ 250ML 250 ML IV SCH (11:02)
[2022-01-10 13:00] VITALS: BP 139/67
[2022-01-10 16:42] VITALS: BP 141/82
[2022-01-10 22:00] VITALS: BP 128/56
[2022-01-11] VITALS (7 sets, daily range): BP systolic 129–149; BP diastolic 58–73
[2022-01-11] MEDS: IPRATROPIUM BROM 0.5 MG/2.5ML INH SOL NEB SCH ×3 (06:07→17:37)
[2022-01-11] MEDS: ALBUTEROL SULF 2.5 MG/0.5ML(0.5%) NEB SOLN NEB SCH ×3 (06:07→17:37)
[2022-01-11] MEDS: APIXABAN 5 MG TAB PO SCH ×2 (09:08→21:26)
[2022-01-11] MEDS: methylPREDNISolone SOD SUCC 125 MG/2 ML VL IV SCH ×2 (09:08→21:26)
[2022-01-11] MEDS: OSELTAMIVIR 30 MG CAP PO SCH ×2 (09:09→21:25)
[2022-01-11] MEDS: ATENOLOL 50 MG TAB PO SCH ×2 (09:09→21:25)
[2022-01-11] MEDS: cefTRIAXone 1GM/50ML D5W 50 ML IV SCH (09:10)
[2022-01-11] MEDS: AZITHROMYCIN 500MG/ 250ML 250 ML IV SCH (10:14)
[2022-01-11] MEDS ORDERED: OXYB5TAB61 PO (11:30)
[2022-01-11] MEDS ORDERED: OXYBUTYNIN CHL 5 MG TAB PO ONE (12:30)
[2022-01-12 05:00] VITALS: BP 110/77
[2022-01-12] MEDS: ALBUTEROL SULF 2.5 MG/0.5ML(0.5%) NEB SOLN NEB SCH ×2 (06:16→12:29)
[2022-01-12] MEDS: IPRATROPIUM BROM 0.5 MG/2.5ML INH SOL NEB SCH ×2 (06:16→12:29)
[2022-01-12] MEDS ORDERED: LEVOTHYROXINE SODIUM 50 MCG TAB PO SCH (07:00)
[2022-01-12 07:48] VITALS: BP 162/99
[2022-01-12 08:00] VITALS: BP 156/97
[2022-01-12 08:12] VITALS: BP 156/97
[2022-01-12] MEDS: ATENOLOL 50 MG TAB PO SCH (09:20)
[2022-01-12] MEDS: cefTRIAXone 1GM/50ML D5W 50 ML IV SCH (09:20)
[2022-01-12] MEDS: OSELTAMIVIR 30 MG CAP PO SCH (09:21)
[2022-01-12] MEDS: methylPREDNISolone SOD SUCC 125 MG/2 ML VL IV SCH (09:21)
[2022-01-12] MEDS: APIXABAN 5 MG TAB PO SCH (09:21)
[2022-01-12] MEDS ORDERED: LEVO750T8 PO (09:43)
[2022-01-12] MEDS ORDERED: ATEN-60 PO (09:43)
[2022-01-12] MEDS ORDERED: OXYBUTYNIN CHL 5 MG TAB PO SCH (10:00)
[2022-01-12] MEDS: AZITHROMYCIN 500MG/ 250ML 250 ML IV SCH (10:29)
[2022-01-12 11:18] VITALS: BP 156/97
[2022-01-12 12:08] VITALS: BP 136/82
== END 2022-01-12 13:31 | disposition home or self-care (01) | DRG 193 ==
LOC: ER 12:55 → TELE 18:09 → TELE-CENTR 20:40
PROVIDERS: ADMIT Registered Nurse; ATTEND Internal Medicine Pulmonary Disease
DX: J10.1 Influenza due to other identified influenza virus with other respiratory manifestations (principal); J96.01 Acute respiratory failure with hypoxia; J44.1 Chronic obstructive pulmonary disease with (acute) exacerbation; C34.90 Malignant neoplasm of unspecified part of unspecified bronchus or lung; N39.0 Urinary tract infection, site not specified; J44.0 Chronic obstructive pulmonary disease with (acute) lower respiratory infection; J15.0 Pneumonia due to Klebsiella pneumoniae; Z20.822 Contact with and (suspected) exposure to COVID-19; E66.9 Obesity, unspecified; E87.5 Hyperkalemia; I48.91 Unspecified atrial fibrillation; I11.0 Hypertensive heart disease with heart failure; I50.9 Heart failure, unspecified; I49.8 Other specified cardiac arrhythmias; Z82.3 Family history of stroke; Z82.49 Family history of ischemic heart disease and other diseases of the circulatory system; Z90.710 Acquired absence of both cervix and uterus; Z90.2 Acquired absence of lung [part of]; Z88.8 Allergy status to other drugs, medicaments and biological substances; I25.2 Old myocardial infarction; Z68.31 Body mass index [BMI] 31.0-31.9, adult; I25.10 Atherosclerotic heart disease of native coronary artery without angina pectoris
CPT/HCPCS: 36415; 36600; 71045; 71250; 80048; 80053; 80061; 81001; 82805; 82962; 83036; 83735; 83880; 84443; 84484; 85025; 87040; 87070; 87077; 87086; 87186; 87205; 87804; 93005; 93306; 93970; 94640; 96365; 96366; 96375; G0378; G9035; J0696; J1100

== ENCOUNTER 2022-02-21 14:20 | Inpatient (IN) | payer OTHER ==
[~2022-02-21] VITALS: Ht 157.5 cm; Wt 77.0 kg
[~2022-02-21 14:20] MED LIST changes: +ATEN-60 PO; -ATEN50TA PO; +LEVO750T8 PO; +OXYB5TAB61 PO
[2022-02-21 15:04] LABS: Basophils # (auto) 0.1 10 ^3/uL (0-0.2); Basophils % (auto) 1.5 % (0.0-2.0); Eosinophils # (auto) 0 10 ^3/uL (0-0.8); Eosinophils % (auto) 0.6 % (0.0-7.0); Hematocrit 39.7 % (36.0-46.0); Lymphocytes # (auto) 0.6 10 ^3/uL (0.4-5.4); Lymphocytes % (auto) 7.6 % (10.0-50.0); Mean Corpuscular Hemoglobin 30.4 pg (28.0-32.0); Mean Corpuscular Hgb Conc. 32.6 g/dL (32.0-36.0); Monocytes # (auto) 0.6 10 ^3/uL (0-1.3); Monocytes % (auto) 7.5 % (0.0-12.0); Neutrophils # (auto) 6.5 10 ^3/uL (1.6-8.6); Neutrophils % (auto) 82.8 % (37.0-80.0); Red Blood Cells 4.27 10^6/uL (4.0-5.20); Red Cell Distribution Width 15.5 % (11.8-14.3); White Blood Cell 7.8 10^3/uL (4.4-10.8)
[2022-02-21 15:23] LABS: Albumin 3.6 g/dL (3.4-5.0); BUN/Creatinine Ratio 17.1; Calcium 8.5 mg/dL (8.5-10.1); Potassium 3.9 mmol/L (3.5-5.1)
[2022-02-21] MEDS ORDERED: DexAMETHasone SOD PHOS 10MG/1ML VIAL INJ IV ONE (15:30)
[2022-02-21] MEDS ORDERED: IPRATROPIUM BROM 0.5 MG/2.5ML INH SOL NEB ONE (16:00)
[2022-02-21] MEDS ORDERED: ALBUTEROL SULF 2.5 MG/0.5ML(0.5%) NEB SOLN NEB ONE (16:00)
[2022-02-21 16:02] LABS: Bilirubin, Total 0.8 mg/dL (0.2-1.0)
[2022-02-21 19:14] LABS: Urine Bacteria FEW /hpf (None Seen); Urine Blood Negative /uL (Negative); Urine Specific Gravity 1.015 (1.001-1.035); Urine WBC 26 /hpf (0 - 5)
[2022-02-21] MEDS ORDERED: levoFLOXacin 500MG 100 ML IV ONE (20:30)
[2022-02-21] MEDS ORDERED: ONDANSETRON HCL 4 MG/2 ML VIAL IV PRN (21:15)
[2022-02-21] MEDS ORDERED: DOCUSATE SOD 100 MG CAP PO PRN (21:15)
[2022-02-21] MEDS ORDERED: ACETAMINOPHEN 325 MG TAB PO PRN (21:15)
[2022-02-21] MEDS ORDERED: ALBUTEROL SULF 2.5 MG/0.5ML(0.5%) NEB SOLN NEB PRN (21:15)
[2022-02-21] MEDS ORDERED: HYDROcodone-ACET 5/325MG TAB PO PRN (21:15)
[2022-02-21] MEDS ORDERED: hydrALAZINE HCL 20 MG/ML VL IV PRN (21:15)
[2022-02-21] MEDS ORDERED: FUROSEMIDE 20 MG/2 ML VIAL IV ONE (21:15)
[2022-02-21] MEDS ORDERED: IPRATROPIUM BROM 0.5 MG/2.5ML INH SOL NEB PRN (21:15)
[2022-02-21] MEDS ORDERED: MORPHINE SULFATE INJ 2 MG/ml SYRG IV PRN (22:15)
[2022-02-21] MEDS ORDERED: NITROGLYCERIN 0.4 MG SL TAB SL PRN (22:15)
[2022-02-21] MEDS: SODIUM CHLOR 0.9% PF (SALINE LOCK) 10ML VIAL/SYR IV SCH (22:40)
[2022-02-21] MEDS: methylPREDNISolone SOD SUCC 40 MG/ML VL IV SCH (22:54)
[2022-02-21] MEDS: APIXABAN 5 MG TAB PO SCH (22:54)
[2022-02-21] MEDS: FAMOTIDINE (10MG/ML) 2ML VL IV SCH (22:54)
[2022-02-21] MEDS: CARVEDILOL 3.125 MG TAB PO SCH (22:55)
[2022-02-21 23:39] VITALS: BP 146/76
[2022-02-22 05:00] VITALS: BP 136/68
[2022-02-22] MEDS: LEVOTHYROXINE SODIUM 50 MCG TAB PO SCH (05:59)
[2022-02-22] MEDS: methylPREDNISolone SOD SUCC 40 MG/ML VL IV SCH ×3 (05:59→22:03)
[2022-02-22] MEDS: SODIUM CHLOR 0.9% PF (SALINE LOCK) 10ML VIAL/SYR IV SCH ×3 (06:04→22:03)
[2022-02-22 06:24] LABS: Basophils # (auto) 0 10 ^3/uL (0-0.2); Basophils % (auto) 0.8 % (0.0-2.0); Eosinophils # (auto) 0 10 ^3/uL (0-0.8); Eosinophils % (auto) 0.1 % (0.0-7.0); Hemoglobin 11.8 g/dL (12.2-16.2); Lymphocytes # (auto) 0.3 10 ^3/uL (0.4-5.4); Lymphocytes % (auto) 5.9 % (10.0-50.0); Mean Corpuscular Hgb Conc. 33.9 g/dL (32.0-36.0); Mean Corpuscular Volume 91.7 fL (80.0-100.0); Monocytes # (auto) 0.1 10 ^3/uL (0-1.3); Monocytes % (auto) 1.8 % (0.0-12.0); Neutrophils # (auto) 4.7 10 ^3/uL (1.6-8.6); Neutrophils % (auto) 91.4 % (37.0-80.0); Red Blood Cells 3.82 10^6/uL (4.0-5.20); Red Cell Distribution Width 15.4 % (11.8-14.3); White Blood Cell 5.1 10^3/uL (4.4-10.8)
[2022-02-22 06:26] LABS: Albumin 3.2 g/dL (3.4-5.0); Calcium 8.4 mg/dL (8.5-10.1); Potassium 4.7 mmol/L (3.5-5.1)
[2022-02-22 06:29] LABS: BUN/Creatinine Ratio 23.5; Bilirubin, Total 0.7 mg/dL (0.2-1.0); Total Protein 6.2 g/dL (6.4-8.2)
[2022-02-22 09:00] VITALS: BP 165/87
[2022-02-22] MEDS: cefTRIAXone 1GM/50ML D5W 50 ML IV SCH (09:20)
[2022-02-22] MEDS: APIXABAN 5 MG TAB PO SCH ×2 (09:21→22:02)
[2022-02-22] MEDS: FAMOTIDINE (10MG/ML) 2ML VL IV SCH ×2 (09:21→22:03)
[2022-02-22] MEDS: CARVEDILOL 3.125 MG TAB PO SCH ×2 (09:21→22:02)
[2022-02-22] MEDS: FUROSEMIDE 20 MG/2 ML VIAL IV SCH (09:22)
[2022-02-22 13:00] VITALS: BP 131/87
[2022-02-22 17:00] VITALS: BP 146/76
[2022-02-22 22:00] VITALS: BP 155/81
[2022-02-23 05:00] VITALS: BP 163/96
[2022-02-23] MEDS: methylPREDNISolone SOD SUCC 40 MG/ML VL IV SCH ×3 (05:35→21:17)
[2022-02-23] MEDS: SODIUM CHLOR 0.9% PF (SALINE LOCK) 10ML VIAL/SYR IV SCH ×3 (06:25→21:16)
[2022-02-23] MEDS: LEVOTHYROXINE SODIUM 50 MCG TAB PO SCH (06:54)
[2022-02-23 08:30] VITALS: BP 148/106
[2022-02-23] MEDS: cefTRIAXone 1GM/50ML D5W 50 ML IV SCH (09:58)
[2022-02-23] MEDS: FAMOTIDINE (10MG/ML) 2ML VL IV SCH ×2 (09:58→21:16)
[2022-02-23] MEDS: CARVEDILOL 3.125 MG TAB PO SCH ×2 (09:59→21:19)
[2022-02-23] MEDS: FUROSEMIDE 20 MG/2 ML VIAL IV SCH (09:59)
[2022-02-23] MEDS: APIXABAN 5 MG TAB PO SCH ×2 (09:59→21:20)
[2022-02-23 12:30] VITALS: BP 119/46
[2022-02-23 17:00] VITALS: BP 150/85
[2022-02-23 22:00] VITALS: BP 142/74
[2022-02-24 05:00] VITALS: BP 157/95
[2022-02-24] MEDS: SODIUM CHLOR 0.9% PF (SALINE LOCK) 10ML VIAL/SYR IV SCH ×2 (05:35→14:00)
[2022-02-24] MEDS: methylPREDNISolone SOD SUCC 40 MG/ML VL IV SCH ×2 (06:13→14:00)
[2022-02-24] MEDS: LEVOTHYROXINE SODIUM 50 MCG TAB PO SCH (06:14)
[2022-02-24 09:00] VITALS: BP 144/101
[2022-02-24] MEDS: FAMOTIDINE (10MG/ML) 2ML VL IV SCH (09:15)
[2022-02-24] MEDS: FUROSEMIDE 20 MG/2 ML VIAL IV SCH (09:15)
[2022-02-24] MEDS: CARVEDILOL 3.125 MG TAB PO SCH (09:16)
[2022-02-24] MEDS: APIXABAN 5 MG TAB PO SCH (09:16)
[2022-02-24] MEDS: cefTRIAXone 1GM/50ML D5W 50 ML IV SCH (09:21)
[2022-02-24] MEDS ORDERED: AZIT500T66 PO (09:48)
[2022-02-24] MEDS ORDERED: METH4PAK PO (09:48)
[2022-02-24 13:00] VITALS: BP 145/82
== END 2022-02-24 16:40 | disposition home or self-care (01) | DRG 193 ==
LOC: ER 14:20 → TELE 22:13 → TELE-EAST 23:25
PROVIDERS: ADMIT Nurse Practitioner Family; ATTEND Family Medicine
DX: J18.9 Pneumonia, unspecified organism (principal); I50.23 Acute on chronic systolic (congestive) heart failure; J96.21 Acute and chronic respiratory failure with hypoxia; J44.1 Chronic obstructive pulmonary disease with (acute) exacerbation; N39.0 Urinary tract infection, site not specified; J98.11 Atelectasis; J44.0 Chronic obstructive pulmonary disease with (acute) lower respiratory infection; I11.0 Hypertensive heart disease with heart failure; E03.9 Hypothyroidism, unspecified; I25.10 Atherosclerotic heart disease of native coronary artery without angina pectoris; Z20.822 Contact with and (suspected) exposure to COVID-19; I48.91 Unspecified atrial fibrillation; K46.9 Unspecified abdominal hernia without obstruction or gangrene; Z79.01 Long term (current) use of anticoagulants; I25.2 Old myocardial infarction; Z79.899 Other long term (current) drug therapy; Z82.3 Family history of stroke; Z82.49 Family history of ischemic heart disease and other diseases of the circulatory system; Z85.118 Personal history of other malignant neoplasm of bronchus and lung; Z86.16 Personal history of COVID-19; Z87.891 Personal history of nicotine dependence; Z90.2 Acquired absence of lung [part of]; Z90.49 Acquired absence of other specified parts of digestive tract; Z90.710 Acquired absence of both cervix and uterus; Z95.5 Presence of coronary angioplasty implant and graft; Z87.01 Personal history of pneumonia (recurrent)
CPT/HCPCS: 36415; 71046; 71250; 74176; 80053; 81001; 82962; 83605; 83690; 83735; 83880; 84443; 84484; 85025; 87081; 87086; 93005; 94640; 96365; 96375; G0378; J0696; J1100; J3490

== ENCOUNTER 2022-04-10 14:37 | Emergency (ER) | payer OTHER ==
[~2022-04-10] VITALS: Ht 157.5 cm; Wt 75.0 kg
[~2022-04-10 14:37] MED LIST changes: +AZIT500T66 PO; +METH4PAK PO
[2022-04-10] MEDS ORDERED: IPRATROPIUM BROM 0.5 MG/2.5ML INH SOL NEB ONE (15:00)
[2022-04-10] MEDS ORDERED: methylPREDNISolone SOD SUCC 125 MG/2 ML VL IV ONE (15:00)
[2022-04-10] MEDS ORDERED: ALBUTEROL SULF 2.5 MG/0.5ML(0.5%) NEB SOLN NEB ONE (15:00)
[2022-04-10 15:53] LABS: Basophils # (auto) 0.1 10 ^3/uL (0-0.2); Basophils % (auto) 1.1 % (0.0-2.0); Eosinophils # (auto) 0 10 ^3/uL (0-0.8); Eosinophils % (auto) 0.6 % (0.0-7.0); Hematocrit 39.5 % (36.0-46.0); Hemoglobin 13.3 g/dL (12.2-16.2); Lymphocytes # (auto) 0.6 10 ^3/uL (0.4-5.4); Lymphocytes % (auto) 6.7 % (10.0-50.0); Mean Corpuscular Hemoglobin 31.4 pg (28.0-32.0); Mean Corpuscular Hgb Conc. 33.5 g/dL (32.0-36.0); Mean Corpuscular Volume 93.6 fL (80.0-100.0); Monocytes # (auto) 0.6 10 ^3/uL (0-1.3); Monocytes % (auto) 7.5 % (0.0-12.0); Neutrophils % (auto) 84.1 % (37.0-80.0); Red Blood Cells 4.23 10^6/uL (4.0-5.20); Red Cell Distribution Width 15.5 % (11.8-14.3); White Blood Cell 8.3 10^3/uL (4.4-10.8)
[2022-04-10 16:19] LABS: Alanine Aminotransferase 23 U/L (13-56); Albumin 3.5 g/dL (3.4-5.0); Anion Gap 7 (5-15); Aspartate Aminotransferase 17 U/L (15-37); Blood Urea Nitrogen 12 mg/dL (7-18); Calcium 8.1 mg/dL (8.5-10.1); Carbon Dioxide 26 mmol/L (21-32); Chloride 109 mmol/L (98-107); GFR African American 81 mL/min; GFR Non-African American 67 mL/min; Glucose 120 mg/dL (74-106); Potassium 3.9 mmol/L (3.5-5.1); Sodium 142 mmol/L (136-145)
[2022-04-10 16:22] LABS: Alkaline Phosphatase 119 U/L (45-117); Bilirubin, Total 0.4 mg/dL (0.2-1.0)
[2022-04-10] MEDS ORDERED: IOHEXOL 350 MG/ML 100ML IJ ONE (16:35)
[2022-04-10] MEDS ORDERED: METH4PAK PO (17:12)
[2022-04-10] MEDS ORDERED: FUROSEMIDE 40 MG/4 ML VIAL IV ONE (17:15)
[2022-04-10 20:39] VITALS: BP 159/87
== END 2022-04-10 20:58 | disposition home or self-care (01) ==
LOC: ER 14:37
DX: J44.1 Chronic obstructive pulmonary disease with (acute) exacerbation (principal); I11.0 Hypertensive heart disease with heart failure; I50.9 Heart failure, unspecified; I25.2 Old myocardial infarction; I48.91 Unspecified atrial fibrillation; Z90.49 Acquired absence of other specified parts of digestive tract; Z90.89 Acquired absence of other organs; Z90.710 Acquired absence of both cervix and uterus
CPT/HCPCS: 36415; 71045; 80053; 83880; 84484; 85025; 85379; 93005; 96374; 96375; 99285; J1940; J2930; J7644

== ENCOUNTER 2022-05-19 07:18 | Inpatient (IN) | payer OTHER ==
[~2022-05-19] VITALS: Ht 157.5 cm; Wt 74.0 kg
[2022-05-19] MEDS ORDERED: ALBUTEROL SULF 2.5 MG/0.5ML(0.5%) NEB SOLN NEB ONE ×2 (07:45→15:30)
[2022-05-19] MEDS ORDERED: methylPREDNISolone SOD SUCC 125 MG/2 ML VL IV ONE (07:45)
[2022-05-19] MEDS ORDERED: ATROPINE SULF 1 MG/10ml SYR IV ONE (07:45)
[2022-05-19] MEDS ORDERED: cefTRIAXone 1GM/50ML D5W 50 ML IV ONE (07:45)
[2022-05-19 08:20] LABS: Hematocrit 38.6 % (36.0-46.0); Hemoglobin 12.6 g/dL (12.2-16.2); Mean Corpuscular Hemoglobin 30.5 pg (28.0-32.0); Mean Corpuscular Hgb Conc. 32.7 g/dL (32.0-36.0); Mean Corpuscular Volume 93.1 fL (80.0-100.0); Red Blood Cells 4.14 10^6/uL (4.0-5.20); Red Cell Distribution Width 15.4 % (11.8-14.3); White Blood Cell 7.4 10^3/uL (4.4-10.8)
[2022-05-19 08:25] LABS: Basophils % (manual) 0 (0.0-2.0); Blast Cells 0; Eosinophils % (manual) 0 (0-7); Metamyelocytes % 0; Myelocytes % 0; Promyelocytes % 0; Reactive Lymphocytes 0
[2022-05-19 08:32] LABS: Albumin 3.2 g/dL (3.4-5.0); Calcium 8.5 mg/dL (8.5-10.1); Potassium 4.4 mmol/L (3.5-5.1)
[2022-05-19 08:35] LABS: BUN/Creatinine Ratio 20.7; Bilirubin, Total 0.8 mg/dL (0.2-1.0); Total Protein 6.6 g/dL (6.4-8.2)
[2022-05-19 09:29] LABS: Band Neutrophils % (manual) 9; Lymphocytes % (manual) 7 (10.0-50.0); Monocytes % (manual) 4 (0-12)
[2022-05-19 10:20] LABS: INR 1.3 (0.9-1.15); Partial Thromboplastin Time 38.9 sec (24.6-33.4)
[2022-05-19] MEDS ORDERED: NITROGLYCERIN 0.4 MG SL TAB SL PRN (14:30)
[2022-05-19] MEDS ORDERED: MORPHINE SULFATE INJ 2 MG/ml SYRG IV PRN (14:30)
[2022-05-19] MEDS ORDERED: FUROSEMIDE 20 MG/2 ML VIAL IV ONE (14:30)
[2022-05-19] MEDS ORDERED: MAGNESIUM SULFATE 1GM/100ML 100 ML IV ONE (14:30)
[2022-05-19] MEDS ORDERED: AZITHROMYCIN 500MG/ 250ML 250 ML IV ONE (14:30)
[2022-05-19 15:21] LABS: Cholesterol 127 mg/dL (< 200); HDL Cholesterol 42 mg/dL (40-59); LDL Cholesterol 82 mg/dL (< 100); Triglycerides 58 mg/dL (< 150)
[2022-05-19] MEDS ORDERED: IPRATROPIUM BROM 0.5 MG/2.5ML INH SOL NEB ONE (15:30)
[2022-05-19 16:07] LABS: Urine Bacteria NONE SEEN /hpf (None Seen); Urine Blood Negative /uL (Negative); Urine Specific Gravity 1.016 (1.001-1.035); Urine WBC <1 /hpf (0 - 5)
[2022-05-19] MEDS: IPRATROPIUM BROM 0.5 MG/2.5ML INH SOL NEB SCH (19:06)
[2022-05-19] MEDS: ALBUTEROL SULF 2.5 MG/0.5ML(0.5%) NEB SOLN NEB SCH (19:06)
[2022-05-19] MEDS: methylPREDNISolone SOD SUCC 125 MG/2 ML VL IV SCH (22:00)
[2022-05-19] MEDS: SERTRALINE HCL 50 MG TAB PO SCH (22:34)
[2022-05-19] MEDS: IPRATROPIUM BROM 0.5 MG/2.5ML INH SOL NEB PRN (22:39)
[2022-05-19] MEDS: ALBUTEROL SULF 2.5 MG/0.5ML(0.5%) NEB SOLN NEB PRN (22:39)
[2022-05-20 04:30] LABS: Basophils # (auto) 0 10 ^3/uL (0-0.2); Basophils % (auto) 0.3 % (0.0-2.0); Eosinophils # (auto) 0 10 ^3/uL (0-0.8); Hematocrit 39.8 % (36.0-46.0); Hemoglobin 12.9 g/dL (12.2-16.2); Lymphocytes # (auto) 0.2 10 ^3/uL (0.4-5.4); Lymphocytes % (auto) 3.1 % (10.0-50.0); Mean Corpuscular Hemoglobin 30.6 pg (28.0-32.0); Mean Corpuscular Hgb Conc. 32.4 g/dL (32.0-36.0); Mean Corpuscular Volume 94.4 fL (80.0-100.0); Monocytes # (auto) 0.2 10 ^3/uL (0-1.3); Monocytes % (auto) 2.5 % (0.0-12.0); Neutrophils # (auto) 5.6 10 ^3/uL (1.6-8.6); Neutrophils % (auto) 94.1 % (37.0-80.0); Red Blood Cells 4.22 10^6/uL (4.0-5.20); Red Cell Distribution Width 15.4 % (11.8-14.3)
[2022-05-20 04:47] LABS: Albumin 3.3 g/dL (3.4-5.0); Potassium 4.6 mmol/L (3.5-5.1)
[2022-05-20 04:50] LABS: BUN/Creatinine Ratio 16.8; Bilirubin, Total 0.5 mg/dL (0.2-1.0); Total Protein 7.4 g/dL (6.4-8.2)
[2022-05-20] MEDS: LEVOTHYROXINE SODIUM 50 MCG TAB PO SCH (06:55)
[2022-05-20] MEDS: ALBUTEROL SULF 2.5 MG/0.5ML(0.5%) NEB SOLN NEB SCH ×3 (07:09→19:44)
[2022-05-20] MEDS: IPRATROPIUM BROM 0.5 MG/2.5ML INH SOL NEB SCH ×3 (07:09→19:44)
[2022-05-20] MEDS: cefTRIAXone 1GM/50ML D5W 50 ML IV SCH (09:10)
[2022-05-20] MEDS: methylPREDNISolone SOD SUCC 125 MG/2 ML VL IV SCH ×2 (09:27→22:28)
[2022-05-20] MEDS: ISOSORBIDE MONONITRATE ER 60 MG TAB PO SCH (09:32)
[2022-05-20] MEDS: SERTRALINE HCL 50 MG TAB PO SCH ×2 (09:33→22:28)
[2022-05-20] MEDS: LISINOPRIL 5 MG TAB PO SCH (09:35)
[2022-05-20] MEDS: ATENOLOL 25 MG TAB PO SCH (09:37)
[2022-05-20] MEDS: ENOXAPARIN SOD 40 MG/0.4 ML SYRINGE SC SCH (09:37)
[2022-05-20] MEDS: AZITHROMYCIN 500MG/ 250ML 250 ML IV SCH (09:49)
[2022-05-20] MEDS ORDERED: PATIENTS OWN MEDICATION (Isosorbide Mononitrate (Isosorbide Mononitrate Er) 30 MG) PO SCH (10:00)
[2022-05-20 22:00] VITALS: BP 130/68
[2022-05-20 23:05] VITALS: BP 155/86
[2022-05-21] MEDS: ALBUTEROL SULF 2.5 MG/0.5ML(0.5%) NEB SOLN NEB PRN ×2 (02:58→22:40)
[2022-05-21] MEDS: IPRATROPIUM BROM 0.5 MG/2.5ML INH SOL NEB PRN ×2 (02:59→22:40)
[2022-05-21 05:00] VITALS: BP 154/85
[2022-05-21] MEDS: LEVOTHYROXINE SODIUM 50 MCG TAB PO SCH (06:19)
[2022-05-21] MEDS: ALBUTEROL SULF 2.5 MG/0.5ML(0.5%) NEB SOLN NEB SCH ×3 (06:59→18:36)
[2022-05-21 08:00] VITALS: BP 135/57
[2022-05-21 09:00] VITALS: BP 135/57
[2022-05-21] MEDS: cefTRIAXone 1GM/50ML D5W 50 ML IV SCH (09:06)
[2022-05-21] MEDS: methylPREDNISolone SOD SUCC 125 MG/2 ML VL IV SCH ×2 (10:47→21:12)
[2022-05-21] MEDS: AZITHROMYCIN 500MG/ 250ML 250 ML IV SCH (10:48)
[2022-05-21] MEDS: ISOSORBIDE MONONITRATE ER 60 MG TAB PO SCH (10:48)
[2022-05-21] MEDS: ATENOLOL 25 MG TAB PO SCH (10:48)
[2022-05-21] MEDS: ENOXAPARIN SOD 40 MG/0.4 ML SYRINGE SC SCH (10:49)
[2022-05-21] MEDS: SERTRALINE HCL 50 MG TAB PO SCH ×2 (10:49→21:13)
[2022-05-21] MEDS: LISINOPRIL 5 MG TAB PO SCH (10:49)
[2022-05-21] MEDS: IPRATROPIUM BROM 0.5 MG/2.5ML INH SOL NEB SCH ×3 (11:22→18:36)
[2022-05-21] MEDS: hydrALAZINE HCL 20 MG/ML VL IV PRN ×2 (12:56→21:23)
[2022-05-21 13:00] VITALS: BP 160/131
[2022-05-21] MEDS ORDERED: BUDESONIDE (INHALATION) 0.5 MG/2 ML NEB NEB ONE (13:00)
[2022-05-21] MEDS ORDERED: BUDESONIDE (INHALATION) 0.5 MG/2 ML NEB ONE (13:07)
[2022-05-21 16:51] VITALS: BP 117/64
[2022-05-21] MEDS: BUDESONIDE (INHALATION) 0.5 MG/2 ML NEB NEB SCH (18:36)
[2022-05-21 22:00] VITALS: BP 154/74
[2022-05-22] MEDS: IPRATROPIUM BROM 0.5 MG/2.5ML INH SOL NEB PRN (03:05)
[2022-05-22] MEDS: ALBUTEROL SULF 2.5 MG/0.5ML(0.5%) NEB SOLN NEB PRN (03:05)
[2022-05-22 05:14] VITALS: BP 132/75
[2022-05-22 05:14] LABS: Basophils # (auto) 0 10 ^3/uL (0-0.2); Basophils % (auto) 0.1 % (0.0-2.0); Eosinophils # (auto) 0 10 ^3/uL (0-0.8); Hematocrit 37.1 % (36.0-46.0); Hemoglobin 12.4 g/dL (12.2-16.2); Lymphocytes # (auto) 0.2 10 ^3/uL (0.4-5.4); Lymphocytes % (auto) 2.4 % (10.0-50.0); Mean Corpuscular Hemoglobin 30.9 pg (28.0-32.0); Mean Corpuscular Hgb Conc. 33.3 g/dL (32.0-36.0); Mean Corpuscular Volume 92.8 fL (80.0-100.0); Monocytes # (auto) 0.5 10 ^3/uL (0-1.3); Monocytes % (auto) 6.1 % (0.0-12.0); Neutrophils # (auto) 7.9 10 ^3/uL (1.6-8.6); Neutrophils % (auto) 91.4 % (37.0-80.0); Red Cell Distribution Width 15.2 % (11.8-14.3); White Blood Cell 8.6 10^3/uL (4.4-10.8)
[2022-05-22 05:29] LABS: BUN/Creatinine Ratio 26.9; Calcium 9.2 mg/dL (8.5-10.1); Potassium 4.6 mmol/L (3.5-5.1)
[2022-05-22] MEDS: BUDESONIDE (INHALATION) 0.5 MG/2 ML NEB NEB SCH ×2 (06:30→18:03)
[2022-05-22] MEDS: ALBUTEROL SULF 2.5 MG/0.5ML(0.5%) NEB SOLN NEB SCH ×3 (06:30→18:03)
[2022-05-22] MEDS: IPRATROPIUM BROM 0.5 MG/2.5ML INH SOL NEB SCH ×3 (06:30→18:03)
[2022-05-22] MEDS: LEVOTHYROXINE SODIUM 50 MCG TAB PO SCH (06:53)
[2022-05-22 08:00] VITALS: BP 134/80
[2022-05-22] MEDS: cefTRIAXone 1GM/50ML D5W 50 ML IV SCH (08:56)
[2022-05-22 09:30] VITALS: BP 134/80
[2022-05-22] MEDS ORDERED: PRED20TA2 PO (10:01)
[2022-05-22] MEDS: AZITHROMYCIN 500MG/ 250ML 250 ML IV SCH (10:31)
[2022-05-22] MEDS: LISINOPRIL 5 MG TAB PO SCH (10:32)
[2022-05-22] MEDS: ATENOLOL 25 MG TAB PO SCH (10:35)
[2022-05-22] MEDS: ISOSORBIDE MONONITRATE ER 60 MG TAB PO SCH (10:36)
[2022-05-22] MEDS: methylPREDNISolone SOD SUCC 125 MG/2 ML VL IV SCH (10:37)
[2022-05-22] MEDS: SERTRALINE HCL 50 MG TAB PO SCH (10:38)
[2022-05-22] MEDS: ENOXAPARIN SOD 40 MG/0.4 ML SYRINGE SC SCH (10:38)
[2022-05-22 12:30] VITALS: BP 133/81
[2022-05-22 14:14] VITALS: BP 134/80
== END 2022-05-22 17:40 | disposition home health service (06) | DRG 193 ==
LOC: ER 07:18 → EDUNIT# 07:18 → EDBD 07:18 → TELE 14:30 → TELE-CENTR 05-20 21:50
PROVIDERS: ADMIT Registered Nurse; ATTEND Internal Medicine Pulmonary Disease
DX: J18.9 Pneumonia, unspecified organism (principal); J96.21 Acute and chronic respiratory failure with hypoxia; J44.1 Chronic obstructive pulmonary disease with (acute) exacerbation; J44.0 Chronic obstructive pulmonary disease with (acute) lower respiratory infection; E03.9 Hypothyroidism, unspecified; I10 Essential (primary) hypertension; Z20.822 Contact with and (suspected) exposure to COVID-19; I48.91 Unspecified atrial fibrillation; Z82.49 Family history of ischemic heart disease and other diseases of the circulatory system; Z85.118 Personal history of other malignant neoplasm of bronchus and lung
CPT/HCPCS: 36415; 36600; 71045; 71250; 80048; 80053; 80061; 81001; 82805; 83036; 83605; 83735; 83880; 84443; 84484; 85007; 85025; 85027; 85379; 85610; 85730; 87040; 87070; 87205; 87426; 87804; 93005; 94640; 96365; 96375; 99291; G0378; J0696

== ENCOUNTER 2022-09-04 14:27 | Emergency (ER) | payer OTHER ==
[~2022-09-04] VITALS: Ht 157.5 cm; Wt 70.4 kg
[~2022-09-04 14:27] MED LIST changes: -LEVO750T8 PO; -METH4PAK PO; +PRED20TA2 PO
[2022-09-04 15:18] LABS: Basophils # (auto) 0 10 ^3/uL (0-0.2); Basophils % (auto) 0.3 % (0.0-2.0); Eosinophils # (auto) 0 10 ^3/uL (0-0.8); Eosinophils % (auto) 0.6 % (0.0-7.0); Hematocrit 33.6 % (36.0-46.0); Hemoglobin 11.2 g/dL (12.2-16.2); Lymphocytes # (auto) 0.5 10 ^3/uL (0.4-5.4); Lymphocytes % (auto) 7.2 % (10.0-50.0); Mean Corpuscular Hgb Conc. 33.5 g/dL (32.0-36.0); Mean Corpuscular Volume 92.6 fL (80.0-100.0); Monocytes # (auto) 0.6 10 ^3/uL (0-1.3); Monocytes % (auto) 7.8 % (0.0-12.0); Neutrophils # (auto) 6.2 10 ^3/uL (1.6-8.6); Neutrophils % (auto) 84.1 % (37.0-80.0); Red Blood Cells 3.62 10^6/uL (4.0-5.20); Red Cell Distribution Width 15.4 % (11.8-14.3); White Blood Cell 7.4 10^3/uL (4.4-10.8)
[2022-09-04] MEDS ORDERED: ONDANSETRON HCL 4 MG/2 ML VIAL IV ONE (15:30)
[2022-09-04] MEDS ORDERED: MORPHINE SULFATE INJ 2 MG/ml SYRG IV ONE (15:30)
[2022-09-04] MEDS ORDERED: ALBUTEROL SULF 2.5 MG/0.5ML(0.5%) NEB SOLN NEB ONE (15:30)
[2022-09-04] MEDS ORDERED: IPRATROPIUM BROM 0.5 MG/2.5ML INH SOL NEB ONE (15:30)
[2022-09-04 15:37] LABS: Albumin 3.1 g/dL (3.4-5.0); BUN/Creatinine Ratio 23.3 (10.0-20.0); Calcium 8.8 mg/dL (8.5-10.1); Potassium 4.7 mmol/L (3.5-5.1)
[2022-09-04 15:41] LABS: Bilirubin, Total 0.5 mg/dL (0.2-1.0); Total Protein 6.6 g/dL (6.4-8.2)
[2022-09-04 15:51] LABS: INR 1.07 (0.9-1.15); Partial Thromboplastin Time 29.7 sec (24.6-33.4)
[2022-09-04] MEDS ORDERED: FUROSEMIDE 100 MG/10ML VIAL IV ONE (16:15)
[2022-09-04] MEDS ORDERED: IOHEXOL 350 MG/ML 100ML IJ ONE (16:20)
[2022-09-04 20:12] LABS: Urine Bacteria NONE SEEN /hpf (None Seen); Urine Blood Negative /uL (Negative); Urine WBC 1 /hpf (0 - 5)
[2022-09-04] MEDS ORDERED: methylPREDNISolone SOD SUCC 125 MG/2 ML VL IV ONE (20:30)
[2022-09-04] MEDS ORDERED: levoFLOXacin 500 MG TAB PO ONE (21:30)
[2022-09-05 07:38] VITALS: BP 129/82
== END 2022-09-05 07:44 | disposition home or self-care (01) ==
LOC: ER 14:27
DX: J44.1 Chronic obstructive pulmonary disease with (acute) exacerbation (principal); R07.89 Other chest pain; E87.70 Fluid overload, unspecified; I10 Essential (primary) hypertension; Z88.6 Allergy status to analgesic agent; Z20.822 Contact with and (suspected) exposure to COVID-19
CPT/HCPCS: 36415; 71045; 71275; 80053; 81001; 83880; 84484; 85025; 85379; 85610; 85730; 87426; 93005; 94640; 96374; 96375; 99285; J1940; J2270; J2405; J2930; J7644; Q9967

== ENCOUNTER → 2022-09-22 | Outpatient (CLI) | payer OTHER ==
[2022-09-22 15:22] LABS: Calcium 8.8 mg/dL (8.5-10.1); Potassium 3.6 mmol/L (3.5-5.1)
== END | disposition home or self-care (01) ==
LOC: LAB 14:37
DX: I50.31 Acute diastolic (congestive) heart failure (principal)
CPT/HCPCS: 36415; 80048; 83880

== ENCOUNTER 2022-09-24 19:14 | Emergency (ER) | payer OTHER ==
[~2022-09-24] VITALS: Ht 157.5 cm; Wt 71.9 kg
[2022-09-24 19:35] VITALS: BP 104/59
[2022-09-24 20:13] LABS: Basophils # (auto) 0.1 10 ^3/uL (0-0.2); Basophils % (auto) 0.8 % (0.0-2.0); Eosinophils # (auto) 0.1 10 ^3/uL (0-0.8); Eosinophils % (auto) 1.2 % (0.0-7.0); Hematocrit 36.1 % (36.0-46.0); Hemoglobin 12.1 g/dL (12.2-16.2); Lymphocytes # (auto) 1.1 10 ^3/uL (0.4-5.4); Mean Corpuscular Hgb Conc. 33.6 g/dL (32.0-36.0); Mean Corpuscular Volume 92.3 fL (80.0-100.0); Monocytes # (auto) 0.6 10 ^3/uL (0-1.3); Monocytes % (auto) 8.7 % (0.0-12.0); Neutrophils # (auto) 4.8 10 ^3/uL (1.6-8.6); Neutrophils % (auto) 72.3 % (37.0-80.0); Nucleated Red Blood Cells % 0.1 %; Red Blood Cells 3.91 10^6/uL (4.0-5.20); Red Cell Distribution Width 15.5 % (11.8-14.3); White Blood Cell 6.6 10^3/uL (4.4-10.8)
[2022-09-24 20:44] LABS: Albumin 3.4 g/dL (3.4-5.0); Calcium 8.9 mg/dL (8.5-10.1); Magnesium 2.6 mg/dL (1.6-2.6); Potassium 4.2 mmol/L (3.5-5.1)
[2022-09-24 20:47] LABS: BUN/Creatinine Ratio 25.4 (10.0-20.0); Bilirubin, Total 0.2 mg/dL (0.2-1.0); Total Protein 7.4 g/dL (6.4-8.2)
== END 2022-09-24 22:08 | disposition left against medical advice (07) ==
LOC: ER 19:14
DX: R06.02 Shortness of breath (principal); R07.89 Other chest pain; I48.91 Unspecified atrial fibrillation; Z53.21 Procedure and treatment not carried out due to patient leaving prior to being seen by health care provider
CPT/HCPCS: 36415; 71045; 80053; 83735; 83880; 84484; 85025; 93005

== ENCOUNTER 2022-11-26 06:53 | Inpatient (IN) | payer OTHER ==
[~2022-11-26] VITALS: Ht 160 cm; Wt 76.2 kg
[~2022-11-26 06:53] MED LIST changes: +OXYB5TAB10 PO; -OXYB5TAB61 PO; +SERT-206 PO; -SERT50TA19 PO
[2022-11-26 07:26] LABS: Basophils # (auto) 0 10 ^3/uL (0-0.2); Basophils % (auto) 0.5 % (0.0-2.0); Eosinophils # (auto) 0.1 10 ^3/uL (0-0.8); Eosinophils % (auto) 0.8 % (0.0-7.0); Hematocrit 33.3 % (36.0-46.0); Hemoglobin 11.5 g/dL (12.2-16.2); Lymphocytes # (auto) 0.8 10 ^3/uL (0.4-5.4); Lymphocytes % (auto) 12.3 % (10.0-50.0); Mean Corpuscular Hemoglobin 31.7 pg (28.0-32.0); Mean Corpuscular Hgb Conc. 34.4 g/dL (32.0-36.0); Monocytes # (auto) 0.6 10 ^3/uL (0-1.3); Neutrophils # (auto) 5.1 10 ^3/uL (1.6-8.6); Neutrophils % (auto) 77.4 % (37.0-80.0); Red Blood Cells 3.62 10^6/uL (4.0-5.20); Red Cell Distribution Width 14.5 % (11.8-14.3); White Blood Cell 6.6 10^3/uL (4.4-10.8)
[2022-11-26 07:46] LABS: INR 1.16 (0.9-1.15); Partial Thromboplastin Time 32.7 sec (24.6-33.4)
[2022-11-26 07:47] LABS: Potassium 4.6 mmol/L (3.5-5.1)
[2022-11-26 07:54] LABS: Albumin 3.7 g/dL (3.4-5.0); BUN/Creatinine Ratio 29.1 (10.0-20.0); Bilirubin, Total 0.6 mg/dL (0.2-1.0); Calcium 8.8 mg/dL (8.5-10.1)
[2022-11-26] MEDS ORDERED: MORPHINE SULFATE 4 MG/ML SYR/VIAL IV PRN (10:15)
[2022-11-26 12:06] LABS: INR 1.15 (0.9-1.15)
[2022-11-26] MEDS: ALBUTEROL SULF 2.5 MG/0.5ML(0.5%) NEB SOLN NEB SCH ×3 (14:25→22:27)
[2022-11-26] MEDS: IPRATROPIUM BROM 0.5 MG/2.5ML INH SOL NEB SCH ×3 (14:25→22:27)
[2022-11-26] MEDS: ONDANSETRON HCL 4 MG/2 ML VIAL IV PRN (14:29)
[2022-11-26] MEDS: methylPREDNISolone SOD SUCC 125 MG/2 ML VL IV SCH ×2 (14:30→22:31)
[2022-11-26 14:47] LABS: Urine Bacteria FEW /hpf (None Seen); Urine Blood Negative /uL (Negative); Urine Specific Gravity 1.013 (1.001-1.035); Urine WBC 3 /hpf (0 - 5)
[2022-11-26 16:20] VITALS: BP 95/71
[2022-11-26] MEDS ORDERED: ATORVASTATIN 20 MG TAB PO SCH (22:00)
[2022-11-26 22:22] VITALS: BP 132/62
[2022-11-26] MEDS: APIXABAN 5 MG TAB PO SCH (22:31)
[2022-11-26] MEDS: SERTRALINE HCL 50 MG TAB PO SCH (22:32)
[2022-11-26] MEDS ORDERED: METOPROLOL TARTRATE 1MG/1ML-5ML VIAL IV ONE (23:15)
[2022-11-26] MEDS ORDERED: MELATONIN 5 MG TAB PO ONE (23:15)
[2022-11-27] MEDS: ALBUTEROL SULF 2.5 MG/0.5ML(0.5%) NEB SOLN NEB SCH ×6 (02:00→22:40)
[2022-11-27] MEDS: IPRATROPIUM BROM 0.5 MG/2.5ML INH SOL NEB SCH ×6 (02:00→22:40)
[2022-11-27 05:26] VITALS: BP 110/68
[2022-11-27] MEDS: methylPREDNISolone SOD SUCC 125 MG/2 ML VL IV SCH ×3 (05:58→22:07)
[2022-11-27] MEDS: LEVOTHYROXINE SODIUM 50 MCG TAB PO SCH (05:59)
[2022-11-27 06:40] LABS: Basophils # (auto) 0 10 ^3/uL (0-0.2); Basophils % (auto) 0.3 % (0.0-2.0); Eosinophils # (auto) 0 10 ^3/uL (0-0.8); Hematocrit 34.3 % (36.0-46.0); Lymphocytes # (auto) 0.5 10 ^3/uL (0.4-5.4); Lymphocytes % (auto) 6.2 % (10.0-50.0); Mean Corpuscular Hemoglobin 32.2 pg (28.0-32.0); Mean Corpuscular Hgb Conc. 34.9 g/dL (32.0-36.0); Mean Corpuscular Volume 92.3 fL (80.0-100.0); Monocytes # (auto) 0.1 10 ^3/uL (0-1.3); Monocytes % (auto) 1.7 % (0.0-12.0); Neutrophils # (auto) 6.8 10 ^3/uL (1.6-8.6); Neutrophils % (auto) 91.8 % (37.0-80.0); Red Blood Cells 3.72 10^6/uL (4.0-5.20); Red Cell Distribution Width 13.9 % (11.8-14.3); White Blood Cell 7.4 10^3/uL (4.4-10.8)
[2022-11-27 06:49] LABS: Albumin 3.6 g/dL (3.4-5.0); Calcium 9.2 mg/dL (8.5-10.1); Potassium 4.8 mmol/L (3.5-5.1)
[2022-11-27 06:54] LABS: Bilirubin, Total 0.5 mg/dL (0.2-1.0); Total Protein 7.7 g/dL (6.4-8.2)
[2022-11-27] MEDS: ONDANSETRON HCL 4 MG/2 ML VIAL IV PRN (08:04)
[2022-11-27 09:00] VITALS: BP 122/58
[2022-11-27] MEDS: PANTOPRAZOLE 40 MG/10 ML VIAL INJ IV SCH (09:42)
[2022-11-27] MEDS: FUROSEMIDE 20 MG TAB PO SCH (09:44)
[2022-11-27] MEDS: OXYBUTYNIN CHL 5 MG TAB PO SCH (09:44)
[2022-11-27] MEDS: LISINOPRIL 5 MG TAB PO SCH (09:45)
[2022-11-27] MEDS: ATENOLOL 25 MG TAB PO SCH (09:46)
[2022-11-27] MEDS: SERTRALINE HCL 50 MG TAB PO SCH (10:00)
[2022-11-27] MEDS: APIXABAN 5 MG TAB PO SCH ×2 (10:00→21:55)
[2022-11-27] MEDS ORDERED: METOPROLOL TARTRATE 25 MG TAB PO SCH (10:00)
[2022-11-27] MEDS: ASPirin 81 mg TAB PO SCH (10:00)
[2022-11-27] MEDS: MULTIPLE VITAMIN TAB PO SCH (10:00)
[2022-11-27] MEDS: ISOSORBIDE MONONITRATE ER 60 MG TAB PO SCH (12:59)
[2022-11-27 13:00] VITALS: BP 189/49
[2022-11-27] MEDS: ACETAMINOPHEN 325 MG TAB PO PRN (14:00)
[2022-11-27 16:53] VITALS: BP 109/71
[2022-11-27] MEDS: MELATONIN 5 MG TAB PO SCH (22:05)
[2022-11-27] MEDS: MIRTAZAPINE 30 MG TAB PO SCH (22:07)
[2022-11-27 22:10] VITALS: BP 108/56
[2022-11-28] VITALS (8 sets, daily range): BP systolic 95–139; BP diastolic 50–67
[2022-11-28] MEDS: LEVOTHYROXINE SODIUM 50 MCG TAB PO SCH (05:40)
[2022-11-28] MEDS: methylPREDNISolone SOD SUCC 125 MG/2 ML VL IV SCH ×3 (06:14→21:18)
[2022-11-28] MEDS: ALBUTEROL SULF 2.5 MG/0.5ML(0.5%) NEB SOLN NEB SCH ×5 (06:26→21:51)
[2022-11-28] MEDS: IPRATROPIUM BROM 0.5 MG/2.5ML INH SOL NEB SCH ×5 (06:26→21:51)
[2022-11-28] MEDS: NITROGLYCERIN 0.4 MG SL TAB SL PRN ×2 (07:31→07:36)
[2022-11-28] MEDS: ASPirin 81 mg TAB PO SCH (09:17)
[2022-11-28] MEDS: OXYBUTYNIN CHL 5 MG TAB PO SCH (09:17)
[2022-11-28] MEDS: MULTIPLE VITAMIN TAB PO SCH (09:17)
[2022-11-28] MEDS: PANTOPRAZOLE 40 MG/10 ML VIAL INJ IV SCH (09:22)
[2022-11-28] MEDS: ISOSORBIDE MONONITRATE ER 60 MG TAB PO SCH (09:22)
[2022-11-28] MEDS: FUROSEMIDE 20 MG TAB PO SCH (09:23)
[2022-11-28] MEDS: ATENOLOL 25 MG TAB PO SCH (09:23)
[2022-11-28] MEDS: LISINOPRIL 5 MG TAB PO SCH (09:23)
[2022-11-28] MEDS: MELATONIN 5 MG TAB PO SCH (21:18)
[2022-11-28] MEDS: MIRTAZAPINE 30 MG TAB PO SCH (21:18)
[2022-11-29] VITALS (7 sets, daily range): BP systolic 104–122; BP diastolic 51–68
[2022-11-29] MEDS: LEVOTHYROXINE SODIUM 50 MCG TAB PO SCH (06:01)
[2022-11-29] MEDS: methylPREDNISolone SOD SUCC 125 MG/2 ML VL IV SCH ×3 (06:01→22:04)
[2022-11-29] MEDS: ALBUTEROL SULF 2.5 MG/0.5ML(0.5%) NEB SOLN NEB SCH ×5 (06:47→22:01)
[2022-11-29] MEDS: IPRATROPIUM BROM 0.5 MG/2.5ML INH SOL NEB SCH ×5 (06:47→22:01)
[2022-11-29] MEDS: MULTIPLE VITAMIN TAB PO SCH (09:08)
[2022-11-29] MEDS: FUROSEMIDE 20 MG TAB PO SCH (09:08)
[2022-11-29] MEDS: PANTOPRAZOLE 40 MG/10 ML VIAL INJ IV SCH (09:08)
[2022-11-29] MEDS: ASPirin 81 mg TAB PO SCH (09:08)
[2022-11-29] MEDS: ATENOLOL 25 MG TAB PO SCH (09:09)
[2022-11-29] MEDS: ISOSORBIDE MONONITRATE ER 60 MG TAB PO SCH (09:09)
[2022-11-29] MEDS: LISINOPRIL 5 MG TAB PO SCH (09:09)
[2022-11-29] MEDS: OXYBUTYNIN CHL 5 MG TAB PO SCH (09:09)
[2022-11-29] MEDS: MIRTAZAPINE 30 MG TAB PO SCH (21:58)
[2022-11-29] MEDS: ACETAMINOPHEN 325 MG TAB PO PRN (21:59)
[2022-11-29] MEDS: MELATONIN 5 MG TAB PO SCH (21:59)
[2022-11-30 05:00] VITALS: BP 118/60
[2022-11-30] MEDS: ALBUTEROL SULF 2.5 MG/0.5ML(0.5%) NEB SOLN NEB SCH ×3 (06:25→14:00)
[2022-11-30] MEDS: IPRATROPIUM BROM 0.5 MG/2.5ML INH SOL NEB SCH ×3 (06:25→14:00)
[2022-11-30] MEDS: methylPREDNISolone SOD SUCC 125 MG/2 ML VL IV SCH ×2 (07:19→14:00)
[2022-11-30] MEDS: LEVOTHYROXINE SODIUM 50 MCG TAB PO SCH (07:20)
[2022-11-30 08:00] VITALS: BP 120/66
[2022-11-30 09:00] VITALS: BP 120/66
[2022-11-30] MEDS: MULTIPLE VITAMIN TAB PO SCH (09:38)
[2022-11-30] MEDS: PANTOPRAZOLE 40 MG/10 ML VIAL INJ IV SCH (09:38)
[2022-11-30] MEDS: ISOSORBIDE MONONITRATE ER 60 MG TAB PO SCH (09:38)
[2022-11-30] MEDS: ASPirin 81 mg TAB PO SCH (09:38)
[2022-11-30] MEDS: OXYBUTYNIN CHL 5 MG TAB PO SCH (09:39)
[2022-11-30] MEDS: FUROSEMIDE 20 MG TAB PO SCH (09:40)
[2022-11-30] MEDS: LISINOPRIL 5 MG TAB PO SCH (09:41)
[2022-11-30] MEDS: ATENOLOL 25 MG TAB PO SCH (09:41)
[2022-11-30] MEDS ORDERED: ALBU0.084 NEB (09:53)
[2022-11-30] MEDS ORDERED: ALBUAER3 IN (09:53)
[2022-11-30] MEDS ORDERED: IPRIH INH (09:53)
[2022-11-30] MEDS ORDERED: PRED20TA2 PO (09:53)
[2022-11-30 12:35] VITALS: BP 120/66
[2022-11-30 13:00] VITALS: BP 107/74
== END 2022-11-30 14:20 | disposition home or self-care (01) | DRG 189 ==
LOC: ER 06:53 → EDUNIT# 06:53 → EDBD 06:53 → TELE 10:23 → TELE-EAST 21:49
PROVIDERS: ADMIT Nurse Practitioner Family; ATTEND Family Medicine
DX: J96.20 Acute and chronic respiratory failure, unspecified whether with hypoxia or hypercapnia (principal); J18.9 Pneumonia, unspecified organism; F33.1 Major depressive disorder, recurrent, moderate; J44.0 Chronic obstructive pulmonary disease with (acute) lower respiratory infection; J44.1 Chronic obstructive pulmonary disease with (acute) exacerbation; I11.0 Hypertensive heart disease with heart failure; D64.9 Anemia, unspecified; E03.9 Hypothyroidism, unspecified; I48.91 Unspecified atrial fibrillation; I50.9 Heart failure, unspecified; Z82.3 Family history of stroke; Z82.49 Family history of ischemic heart disease and other diseases of the circulatory system; Z95.5 Presence of coronary angioplasty implant and graft; I25.10 Atherosclerotic heart disease of native coronary artery without angina pectoris; I25.2 Old myocardial infarction; K57.30 Diverticulosis of large intestine without perforation or abscess without bleeding
CPT/HCPCS: 36415; 71045; 74176; 80053; 81001; 83735; 83880; 84484; 85025; 85610; 85730; 87081; 87086; 93005; 94640; 99291; C9113; G0378; J2405

== ENCOUNTER 2022-12-09 11:31 | Emergency (ER) | payer OTHER ==
[~2022-12-09] VITALS: Ht 160 cm; Wt 70.7 kg
[~2022-12-09 11:31] MED LIST changes: +ALBU0.084 NEB; +ALBUAER3 IN; +IPRIH INH
[2022-12-09 11:36] VITALS: BP 114/45
[2022-12-09] MEDS ORDERED: FUROSEMIDE 40 MG/4 ML VIAL IV ONE (12:45)
[2022-12-09 13:22] LABS: Basophils # (auto) 0 10 ^3/uL (0-0.2); Basophils % (auto) 0.3 % (0.0-2.0); Eosinophils # (auto) 0 10 ^3/uL (0-0.8); Eosinophils % (auto) 0.1 % (0.0-7.0); Hematocrit 32.1 % (36.0-46.0); Hemoglobin 10.6 g/dL (12.2-16.2); Lymphocytes # (auto) 0.4 10 ^3/uL (0.4-5.4); Lymphocytes % (auto) 3.4 % (10.0-50.0); Mean Corpuscular Hemoglobin 32.3 pg (28.0-32.0); Mean Corpuscular Hgb Conc. 33.1 g/dL (32.0-36.0); Mean Corpuscular Volume 97.3 fL (80.0-100.0); Monocytes # (auto) 0.3 10 ^3/uL (0-1.3); Monocytes % (auto) 2.6 % (0.0-12.0); Neutrophils # (auto) 11.6 10 ^3/uL (1.6-8.6); Neutrophils % (auto) 93.6 % (37.0-80.0); Nucleated Red Blood Cells % 0.1 %; Red Cell Distribution Width 15.5 % (11.8-14.3); White Blood Cell 12.4 10^3/uL (4.4-10.8)
[2022-12-09 13:49] LABS: Potassium 5.3 mmol/L (3.5-5.1)
[2022-12-09 13:53] LABS: Urine Bacteria NONE SEEN /hpf (None Seen); Urine Blood Negative /uL (Negative); Urine Hyaline Cast FEW /lpf (0 - 2); Urine WBC 1 /hpf (0 - 5)
[2022-12-09 13:55] LABS: Albumin 3.4 g/dL (3.4-5.0); Bilirubin, Total 0.4 mg/dL (0.2-1.0); Calcium 8.6 mg/dL (8.5-10.1); Magnesium 2.5 mg/dL (1.6-2.6); Total Protein 6.5 g/dL (6.4-8.2)
== END 2022-12-09 14:17 | disposition left against medical advice (07) ==
LOC: ER 11:31
DX: R06.02 Shortness of breath (principal); R09.89 Other specified symptoms and signs involving the circulatory and respiratory systems; I48.91 Unspecified atrial fibrillation; J44.9 Chronic obstructive pulmonary disease, unspecified; E78.5 Hyperlipidemia, unspecified; I11.0 Hypertensive heart disease with heart failure; I50.9 Heart failure, unspecified; Z98.890 Other specified postprocedural states
CPT/HCPCS: 36415; 71046; 80053; 81001; 83735; 83880; 84484; 85025; 85379; 93005

== ENCOUNTER 2022-12-10 13:37 | Inpatient (IN) | payer OTHER ==
[~2022-12-10] VITALS: Ht 157.5 cm; Wt 73.5 kg
[2022-12-10] MEDS ORDERED: DexAMETHasone SOD PHOS 10MG/1ML VIAL INJ IM ONE (14:15)
[2022-12-10] MEDS ORDERED: HYDROcodone-ACET 5/325MG TAB PO ONE (14:15)
[2022-12-10] MEDS ORDERED: ALBUTEROL SULF 2.5 MG/0.5ML(0.5%) NEB SOLN NEB ONE (14:15)
[2022-12-10] MEDS ORDERED: IPRATROPIUM BROM 0.5 MG/2.5ML INH SOL NEB ONE (14:15)
[2022-12-10 14:32] LABS: Basophils # (auto) 0.1 10 ^3/uL (0-0.2); Basophils % (auto) 0.6 % (0.0-2.0); Eosinophils # (auto) 0.1 10 ^3/uL (0-0.8); Eosinophils % (auto) 0.8 % (0.0-7.0); Hematocrit 32.2 % (36.0-46.0); Hemoglobin 10.6 g/dL (12.2-16.2); Lymphocytes # (auto) 0.9 10 ^3/uL (0.4-5.4); Lymphocytes % (auto) 8.7 % (10.0-50.0); Mean Corpuscular Volume 96.9 fL (80.0-100.0); Monocytes # (auto) 0.6 10 ^3/uL (0-1.3); Monocytes % (auto) 6.4 % (0.0-12.0); Neutrophils # (auto) 8.2 10 ^3/uL (1.6-8.6); Neutrophils % (auto) 83.5 % (37.0-80.0); Red Blood Cells 3.32 10^6/uL (4.0-5.20); Red Cell Distribution Width 15.1 % (11.8-14.3); White Blood Cell 9.9 10^3/uL (4.4-10.8)
[2022-12-10 14:53] LABS: Calcium 8.3 mg/dL (8.5-10.1); Magnesium 2.3 mg/dL (1.6-2.6); Potassium 4.1 mmol/L (3.5-5.1)
[2022-12-10 14:58] LABS: BUN/Creatinine Ratio 28.6 (10.0-20.0); Bilirubin, Total 0.4 mg/dL (0.2-1.0); Total Protein 6.2 g/dL (6.4-8.2)
[2022-12-10 15:25] LABS: INR 1.11 (0.9-1.15); Partial Thromboplastin Time 27.8 SEC (24.5-34.5)
[2022-12-10] MEDS ORDERED: MORPHINE SULFATE INJ 2 MG/ml SYRG IV PRN (19:30)
[2022-12-10] MEDS ORDERED: NITROGLYCERIN 0.4 MG SL TAB SL PRN (19:30)
[2022-12-10 19:31] LABS: Urine Bacteria NONE SEEN /hpf (None Seen); Urine Blood Negative /uL (Negative); Urine Hyaline Cast FEW /lpf (0 - 2); Urine Specific Gravity 1.021 (1.001-1.035); Urine WBC 1 /hpf (0 - 5)
[2022-12-10] MEDS ORDERED: ALBUTEROL SULF 2.5 MG/0.5ML(0.5%) NEB SOLN NEB PRN (19:45)
[2022-12-10] MEDS: ALBUTEROL SULF 2.5 MG/0.5ML(0.5%) NEB SOLN NEB SCH ×2 (19:57→23:52)
[2022-12-10] MEDS: IPRATROPIUM BROM 0.5 MG/2.5ML INH SOL NEB SCH ×2 (19:57→23:52)
[2022-12-10 20:02] LABS: Cholesterol 131 mg/dL (< 200); Triglycerides 174 mg/dL (< 150)
[2022-12-10 20:05] LABS: HDL Cholesterol 43 mg/dL (40-59); LDL Cholesterol 73 mg/dL (< 100)
[2022-12-10 20:19] VITALS: BP 117/77
[2022-12-10] MEDS: SERTRALINE HCL 50 MG TAB PO SCH (23:36)
[2022-12-10] MEDS: DexAMETHasone SOD PHOS 10MG/1ML VIAL INJ IV SCH (23:36)
[2022-12-10] MEDS: APIXABAN 5 MG TAB PO SCH (23:38)
[2022-12-11] MEDS: ACETAMINOPHEN 325 MG TAB PO PRN (01:19)
[2022-12-11] MEDS: IPRATROPIUM BROM 0.5 MG/2.5ML INH SOL NEB SCH ×5 (06:04→21:19)
[2022-12-11] MEDS: ALBUTEROL SULF 2.5 MG/0.5ML(0.5%) NEB SOLN NEB SCH ×5 (06:04→21:19)
[2022-12-11] MEDS: DexAMETHasone SOD PHOS 10MG/1ML VIAL INJ IV SCH ×2 (06:10→15:25)
[2022-12-11 06:16] LABS: Hematocrit 31.1 % (36.0-46.0); Hemoglobin 10.5 g/dL (12.2-16.2); Mean Corpuscular Hemoglobin 32.5 pg (28.0-32.0); Mean Corpuscular Hgb Conc. 33.9 g/dL (32.0-36.0); Red Blood Cells 3.24 10^6/uL (4.0-5.20); White Blood Cell 11.2 10^3/uL (4.4-10.8)
[2022-12-11 06:35] LABS: Basophils % (manual) 0 (0.0-2.0); Blast Cells 0; Eosinophils % (manual) 0 (0-7); Metamyelocytes % 0; Myelocytes % 0; Promyelocytes % 0; Reactive Lymphocytes 0
[2022-12-11 06:46] LABS: Albumin 3.2 g/dL (3.4-5.0); BUN/Creatinine Ratio 24.4 (10.0-20.0); Bilirubin, Total 0.3 mg/dL (0.2-1.0); Calcium 8.7 mg/dL (8.5-10.1); Potassium 4.7 mmol/L (3.5-5.1); Total Protein 6.4 g/dL (6.4-8.2)
[2022-12-11] MEDS: LEVOTHYROXINE SODIUM 50 MCG TAB PO SCH (06:49)
[2022-12-11 08:57] LABS: Lymphocytes % (manual) 3 (10.0-50.0); Monocytes % (manual) 2 (0-12)
[2022-12-11 08:58] LABS: Band Neutrophils % (manual) 8
[2022-12-11] MEDS: APIXABAN 5 MG TAB PO SCH (09:54)
[2022-12-11] MEDS: OXYBUTYNIN CHL 5 MG TAB PO SCH (09:58)
[2022-12-11] MEDS: SERTRALINE HCL 50 MG TAB PO SCH ×2 (09:58→21:26)
[2022-12-11] MEDS: ATENOLOL 25 MG TAB PO SCH (09:58)
[2022-12-11] MEDS: MULTIPLE VITAMIN PO SCH (10:00)
[2022-12-11] MEDS ORDERED: ISOSORBIDE MONONITRATE ER 60 MG TAB PO SCH (10:10)
[2022-12-11] MEDS ORDERED: MULTIPLE VITAMIN TAB PO ONE (10:15)
[2022-12-11] MEDS: ISOSORBIDE MONONITRATE ER 60 MG TAB PO SCH (10:27)
[2022-12-11] MEDS ORDERED: levoFLOXacin 500MG 100 ML IV ONE (16:15)
[2022-12-11 18:27] VITALS: BP 124/67
[2022-12-11 20:00] VITALS: BP 115/68
[2022-12-11] MEDS: APIXABAN 2.5 MG TAB PO SCH (21:26)
[2022-12-11] MEDS: MELATONIN 5 MG TAB PO SCH (21:26)
[2022-12-11] MEDS: metroNIDAZOLE 500MG/100ML 100 ML IV SCH (21:29)
[2022-12-12] MEDS: IPRATROPIUM BROM 0.5 MG/2.5ML INH SOL NEB SCH ×7 (02:00→21:52)
[2022-12-12] MEDS: ALBUTEROL SULF 2.5 MG/0.5ML(0.5%) NEB SOLN NEB SCH ×6 (02:00→21:51)
[2022-12-12 05:00] VITALS: BP 100/55
[2022-12-12] MEDS: metroNIDAZOLE 500MG/100ML 100 ML IV SCH ×3 (06:10→21:16)
[2022-12-12] MEDS: LEVOTHYROXINE SODIUM 50 MCG TAB PO SCH (06:10)
[2022-12-12 09:00] VITALS: BP 118/66
[2022-12-12] MEDS: levoFLOXacin 250MG 50 ML IV SCH (09:54)
[2022-12-12] MEDS: MULTIPLE VITAMIN PO SCH (09:54)
[2022-12-12] MEDS: ISOSORBIDE MONONITRATE ER 60 MG TAB PO SCH (09:55)
[2022-12-12] MEDS: OXYBUTYNIN CHL 5 MG TAB PO SCH (09:56)
[2022-12-12] MEDS: ATENOLOL 25 MG TAB PO SCH (09:56)
[2022-12-12] MEDS: SERTRALINE HCL 50 MG TAB PO SCH ×2 (09:56→21:17)
[2022-12-12] MEDS: APIXABAN 2.5 MG TAB PO SCH ×2 (09:57→21:17)
[2022-12-12] MEDS ORDERED: DexAMETHasone SOD PHOS 10MG/1ML VIAL INJ IV SCH (10:00)
[2022-12-12 12:48] VITALS: BP 106/61
[2022-12-12] MEDS: MELATONIN 5 MG TAB PO SCH (21:18)
[2022-12-12 21:20] VITALS: BP 104/51
[2022-12-13] MEDS: ALBUTEROL SULF 2.5 MG/0.5ML(0.5%) NEB SOLN NEB SCH ×6 (02:02→22:47)
[2022-12-13] MEDS: IPRATROPIUM BROM 0.5 MG/2.5ML INH SOL NEB SCH ×6 (02:02→22:47)
[2022-12-13 05:00] VITALS: BP 129/63
[2022-12-13] MEDS: LEVOTHYROXINE SODIUM 50 MCG TAB PO SCH (05:34)
[2022-12-13] MEDS: metroNIDAZOLE 500MG/100ML 100 ML IV SCH ×3 (05:35→21:48)
[2022-12-13 08:00] VITALS: BP 123/57
[2022-12-13] MEDS: SERTRALINE HCL 50 MG TAB PO SCH ×2 (09:49→21:47)
[2022-12-13] MEDS: levoFLOXacin 250MG 50 ML IV SCH (09:49)
[2022-12-13] MEDS: APIXABAN 2.5 MG TAB PO SCH ×2 (09:49→21:47)
[2022-12-13] MEDS: ISOSORBIDE MONONITRATE ER 60 MG TAB PO SCH (09:50)
[2022-12-13] MEDS: OXYBUTYNIN CHL 5 MG TAB PO SCH (09:50)
[2022-12-13] MEDS: ATENOLOL 25 MG TAB PO SCH (09:51)
[2022-12-13] MEDS: MULTIPLE VITAMIN PO SCH (09:53)
[2022-12-13] MEDS ORDERED: METH4PAK PO (12:44)
[2022-12-13] MEDS ORDERED: AZITTAB PO (12:44)
[2022-12-13] MEDS ORDERED: LACTULOSE 20Gm/30ML SOLN PO PRN (12:45)
[2022-12-13] MEDS ORDERED: DOCUSATE SOD 100 MG CAP PO ONE (12:45)
[2022-12-13] MEDS: ACETAMINOPHEN 325 MG TAB PO PRN (18:05)
[2022-12-13] MEDS: DOCUSATE SOD 100 MG CAP PO SCH (21:47)
[2022-12-13] MEDS: MELATONIN 5 MG TAB PO SCH (21:48)
[2022-12-14] MEDS: IPRATROPIUM BROM 0.5 MG/2.5ML INH SOL NEB SCH ×5 (03:22→18:52)
[2022-12-14] MEDS: ALBUTEROL SULF 2.5 MG/0.5ML(0.5%) NEB SOLN NEB SCH ×5 (03:22→18:52)
[2022-12-14] MEDS: LEVOTHYROXINE SODIUM 50 MCG TAB PO SCH (05:52)
[2022-12-14] MEDS: metroNIDAZOLE 500MG/100ML 100 ML IV SCH ×2 (05:52→13:54)
[2022-12-14 08:00] VITALS: BP 109/56
[2022-12-14] MEDS: DOCUSATE SOD 100 MG CAP PO SCH (10:00)
[2022-12-14] MEDS: MULTIPLE VITAMIN PO SCH (10:00)
[2022-12-14] MEDS: levoFLOXacin 250MG 50 ML IV SCH (10:25)
[2022-12-14] MEDS: APIXABAN 2.5 MG TAB PO SCH (10:25)
[2022-12-14] MEDS: OXYBUTYNIN CHL 5 MG TAB PO SCH (10:26)
[2022-12-14] MEDS: ATENOLOL 25 MG TAB PO SCH (10:26)
[2022-12-14] MEDS: ISOSORBIDE MONONITRATE ER 60 MG TAB PO SCH (10:27)
[2022-12-14] MEDS: ACETAMINOPHEN 325 MG TAB PO PRN (10:31)
[2022-12-14] MEDS: SERTRALINE HCL 50 MG TAB PO SCH (10:35)
[2022-12-14] MEDS ORDERED: PANT40TA2 PO (12:40)
[2022-12-14] MEDS ORDERED: PANTOPRAZOLE 40 MG TAB PO ONE (12:45)
[2022-12-14] MEDS ORDERED: POTASSIUM CHL 10 Meq TABLET PO ONE (15:45)
[2022-12-14] MEDS ORDERED: FUROSEMIDE 20 MG/2 ML VIAL IV ONE (15:45)
== END 2022-12-14 19:50 | disposition hospice, home (50) | DRG 189 ==
LOC: ER 13:37 → TELE 19:32 → TELE-WESTW 12-11 18:20
PROVIDERS: ADMIT Nurse Practitioner Family; ATTEND Internal Medicine Geriatric Medicine
PROC: 05HC33Z Insertion of Infusion Device into Left Basilic Vein, Percutaneous Approach (ICD-10-PCS; principal; 2022-12-11)
PROC: B54NZZA Ultrasonography of Left Upper Extremity Veins, Guidance (ICD-10-PCS; 2022-12-11)
DX: J96.20 Acute and chronic respiratory failure, unspecified whether with hypoxia or hypercapnia (principal); I50.40 Unspecified combined systolic (congestive) and diastolic (congestive) heart failure; K57.92 Diverticulitis of intestine, part unspecified, without perforation or abscess without bleeding; N17.9 Acute kidney failure, unspecified; I24.9 Acute ischemic heart disease, unspecified; I48.20 Chronic atrial fibrillation, unspecified; J43.9 Emphysema, unspecified; I11.0 Hypertensive heart disease with heart failure; E66.01 Morbid (severe) obesity due to excess calories; E03.9 Hypothyroidism, unspecified; D64.9 Anemia, unspecified; E83.51 Hypocalcemia; D69.6 Thrombocytopenia, unspecified; E78.5 Hyperlipidemia, unspecified; I25.10 Atherosclerotic heart disease of native coronary artery without angina pectoris; I25.2 Old myocardial infarction; Z79.01 Long term (current) use of anticoagulants; Z68.29 Body mass index [BMI] 29.0-29.9, adult; Z82.49 Family history of ischemic heart disease and other diseases of the circulatory system; Z90.710 Acquired absence of both cervix and uterus; Z95.5 Presence of coronary angioplasty implant and graft; Z99.81 Dependence on supplemental oxygen; Z90.49 Acquired absence of other specified parts of digestive tract
CPT/HCPCS: 36415; 36600; 71046; 71250; 80053; 80061; 81001; 82805; 83036; 83690; 83735; 83880; 84443; 84484; 85007; 85025; 85027; 85379; 85610; 85730; 93005; 93306; 94640; 96365; G0378; J1100; J1956; J3490